=== PATIENT | female | born 1940 | race Caucasian/White ===

== ENCOUNTER 2024-09-04 12:56 | Outpatient (OUT) | payer MEDICARE, BC, SELFPAY ==
--- NOTE | 2024-09-04 07:26 | P.DS_ITS ---
Discharge Plan Discharge Disposition: Home, Self-Care Outpatient Diagnostics: VC Endovenous Ablation 1VeinLT (Routine) Timeframe: 2 Weeks Facility: [facility] - Location: [facility] Center Ordered By: Murphy Padilla Follow Up Appointments: 09/18/24 Plan of Treatment: EVLT of left leg GSV. Print Language: Lao Discharge Date/Time: 09/04/24 16:12
--- NOTE | 2024-09-04 07:26 | V.VEINS.HP ---
Vital Signs 09/04/24 13:34 Height 5 ft 7 in Weight 68.946 kg BMI 23.8 BP 140/68 BP Location Left Brachial BP Position Supine BP Cuff Size Adult BP Source Manual Cuff Respiration 18 Pulse 72 Pulse Source Monitor Pulse Oximetry (%) 98 Oxygen Delivery Method Room Air Comment The patient's blood pressure is elevated. Varicose Veins Patient in this day with c/o left upper leg achiness for one month. Murphy Packer MD personally performed the services described in this documentation, as scribed by Louie Us RN in my presence and it is both accurate and complete. Louie Packer RN, am scribing for, and in the presence of, Dr. Murphy Padilla and in the presence of the patient. thigh: left aching and dull 3 1 month Worsened in recent months: Yes standing analgesics Reports muscle spasms of leg and limb pain History of lower extremity trauma: No Superficial thrombophlebitis: No Family history of varicose veins: yes Has patient had previous lower extremity venous surgery: No Patient has previously received the following treatment(s) for lower extremity varicose veins: Reports none Does patient have a history of : yes Does patient intend to have future pregnancies: no Has patient had lower extremity venous scan with relux testing: No Support hose used: Yes Problems walking or doing physical activity: Yes How does it affect you: often has to set and elevate legs/feet due to pain Do you walk much: Yes Do you stand much: Yes Review of Systems ROS Narrative Murphy Packer MD personally performed the services described in this documentation, as scribed by Louie Us RN in my presence and it is both accurate and complete. Louie Packer RN, am scribing for, and in the presence of, Dr. Murphy Padilla and in the presence of the patient. Status of ROS 10 or more systems reviewed and unremarkable except as noted in history and below [facility] Medical History (Updated 09/04/24 @ 13:45 by Louie Us) Cataract ?H26.9 - Unspecified cataract (ICD-10) Pain due to varicose veins of both lower extremities ?I83.813 - Varicose veins of bilateral lower extremities with pain (ICD-10) Surgical History (Updated 09/04/24 @ 13:45 by Louie Us) H/O mastectomy ?Z90.10 - Acquired absence of unspecified breast and nipple (ICD-10) Family History (Updated 09/04/24 @ 13:48 by Louie Us) Other Pain due to varicose veins of both lower extremities Rheumatic aortic disease Social History (Updated 09/04/24 @ 13:49 by Louie Us) Within the past year, how often did you have a drink containing alcohol: monthly or less Smoking status: Never smoker Non-prescribed substance use: denies use Meds Home Medications and Allergies Home Medications ?Medication ?Instructions ?Recorded ?Confirmed ?Type multivitamin (Daily Multi-Vitamin 1 tab PO DAILY 09/04/24 09/04/24 History tablet) Allergies Allergy/AdvReac Type Severity Reaction Status Date / Time No Known Drug Allergies Allergy Verified 09/04/24 13:47 Exam Narrative Exam Narrative: Murphy Packer MD personally performed the services described in this documentation, as scribed by Louie Us RN in my presence and it is both accurate and complete. Louie Packer RN, am scribing for, and in the presence of, Dr. Murphy Padilla and in the presence of the patient. Results Additional Findings Additional findings: bilateral leg reflux u/s reveals abnormally dilated and compensated bilateral GSV's along with bilateral leg branch saphenous truncal tributary varicosities. Murphy Packer MD personally performed the services described in this documentation, as scribed by Louie Us RN in my presence and it is both accurate and complete. Louie Packer RN, am scribing for, and in the presence of, Dr. Murphy Padilla and in the presence of the patient. Assessment and Plan Assessment and Plan Plan Patient to continue to use bilateral leg compression stockings, elevate, and exercise. Patien to return for EVLT of left GSV followed by microofam chemical ablation left leg. If patient remains symptomatic, patient to return for treatment of right leg, followed by sclerotherapy bilateral leg pre-hemorrhagic reticular veins. Muprhy Packer MD personally performed the services described in this documentation, as scribed by Louie Us RN in my presence and it is both accurate and complete. Louie Packer RN, am scribing for, and in the presence of, Dr. Murphy Padilla and in the presence of the patient.
--- NOTE | 2024-09-04 13:12 | VEIN_ITS ---
Patient Name: LUDMILA LAMBERT MR#: [id number] : 1940 Exam Date: 09/04/2024 Ordering Doctor: DR CLAUDIA WOOD M.D. RADIOLOGY REPORT PROCEDURE: VC FACILITY EST [facility] - OFFICE VISIT INITIAL COMPARISON: VC EXT VENOUS REFLUX CLARISSA LMTD, 09/04/2024. PROGRESS NOTES: [age] year old female who presents with a 3 month history of dilated bulging blood vessel within lateral left thigh causing pain; leg pain and spasm. The patient's left leg symptoms are worse than the right. There has been a progression of symptoms over past month. Pain/tenderness is rather consistent throughout the day. The patient describes an improvement with analgesics. The patient denies any signs and symptoms to suggest arterial ischemia. The patient describes a family history of varicose veins and rheumatic aortic disease. The patient has drinking and smoking history of occasional alcohol consumption; no tobacco use. Patient has a past medical history significant for pain due to varicose veins; prior mastectomy. The patient denies a history of deep venous thrombus or pulmonary embolus. See separate history and physical for medication list. No prior treatment for varicose or spider veins. Current use of compression stockings. After review of nurse notes, history and physical exam I discussed at length the pathophysiology of venous hypertension and possible treatments, therapies and strategies available. We discussed at length the importance of elevating the lower extremities above the level of the heart, increased physical activity and compression stocking use. Ultrasound venous reflux study performed today was discussed at length with the patient. The report demonstrates abnormally dilated and incompetent great saphenous vein bilaterally with associated dilated incompetent branch saphenous varicosities.. PHYSICAL EXAM: The right leg demonstrates several varicosities, extensive spider veins, no ulceration, mild edema, no skin discoloration. The left leg demonstrates several varicosities, extensive spider veins, no ulceration, mild edema, no skin discoloration. Both thighs, legs and feet were symmetrically warm to the touch. Good posterior tibial and dorsalis pedis pulses were present bilaterally. VEIN/VC Facility EST Comprehensive IMPRESSION: 1. Bilateral lower extremity venous insufficiency 2. Bilateral lower extremity varicose veins 3. Mild bilateral lower extremity subcutaneous edema 4. No flow significant arterial disease 5. CEAP: C3, EC, , NM PLAN: 1. Continued use of compression stockings 2. Elevated legs and increased physical activity symptomatic relief 3. Endovenous laser ablation of right great saphenous vein; microfoam chemical ablation of right leg incompetent branch saphenous varicosities; right leg sclerotherapy. 4. If patient appreciate benefits of treating the right leg then she may be interested in treating the left great saphenous vein, branch saphenous varicosities, and numerous spider veins of the left leg. Nurse notes, history and physical were reviewed and confirmed, see attached forms. The nurse was present throughout the physical exam and consultation Dictated by: Murphy Padilla M.D. on 09/05/2024 at 09:16 Approved by: Murphy Padilla M.D. on 09/05/2024 at 09:25
--- NOTE | 2024-09-04 13:12 | VEIN_ITS ---
Patient Name: LUDMILA LAMBERT MR#: [id number] : 1940 Exam Date: 09/04/2024 Ordering Doctor: DR CLAUDIA WOOD M.D. RADIOLOGY REPORT PROCEDURE: VC EXT VENOUS REFLUX CLARISSA LMTD COMPARISON: None. INDICATIONS: I83.813 Bilateral painful varicose veins TECHNIQUE: Duplex imaging of the lower extremity to assess the deep and superficial venous system for the presence of deep or superficial venous incompetence and to document the location and severity of disease. The study includes evaluation of the great saphenous vein (GSV), anterior accessory saphenous vein (AASV) and small saphenous vein (SSV). Patient scanned in reverse Trendelenburg and standing. FINDINGS: RIGHT LOWER EXTREMITY: Saphenofemoral Junction Reflux: Yes 8.3mm 2.8 sec GSV: Diam (mm) Reflux/ Time (sec) Proximal Thigh 7.0 Yes 1.8 Mid Thigh 6.8 Yes 2.3 Distal Thigh 1.5 No Prox Calf 0.7 No Mid Calf N/A Saphenopopliteal Junction Reflux: 3.3mm No SSV: Proximal Calf 1.8 No Mid Calf 2.3 No AASV: Not present Proximal Thigh Mid Thigh Distal Thigh Thrombi: No acute or chronic thrombus visualized Compressibility: Normal Flow: Normal Preforator: Dist/med calf 3.7mm with 0s reflux. Prox/med calf 4.6mm with 0.6s reflux with large deep varicosities visualized. Tech Note: Incompetent GSV. Patent varicose vein dist/med calf 3.6mm with 1.0s reflux. Patent varicose vein prox/med calf 9.6mm with 3.1s reflux. Patent varicose vein mid/med thigh 5.7mm with 1.4s reflux. LEFT LOWER EXTREMITY: Saphenofemoral Junction Reflux: Yes 10.3 mm 2.3 sec GSV: Diam (mm) Reflux/Time (sec) Proximal Thigh 8.7 Yes 0.7 Mid Thigh 4.9 Yes 1.7 Distal Thigh 3.9 Yes 1.6 Prox Calf 3.3 No Mid Calf 1.7 No Saphenopopliteal Junction Relux: 3.3 mm No SSV: Proximal Calf 3.3 Yes 1.8 Mid Calf 2.6 No AASV: Not present Proximal Thigh Mid Thigh Distal Thigh Thrombi: No acute or chronic thrombus visualized Compressibility: Normal Flow: Normal Pool Attendant: Dist/med calf 3.6mm with 0s reflux. Prox/med calf 4.8mm with 0s reflux. Tech Note: Incompetent GSV. Patent varicose vein mid/lat thigh 3.1mm with 0s reflux. Patent varicose vein mid/med calf 3.7mm with 2.1s reflux. Patent varicose vein mid/med thigh 2.6mm with 1.2s reflux. CONCLUSION: 1. Abnormally dilated and incompetent great saphenous vein bilaterally with associated incompetent branch saphenous varicosities. Dictated by: Murphy Padilla M.D. on 09/04/2024 at 14:35 Approved by: Murphy Padilla M.D. on 09/04/2024 at 15:13
[2024-09-04 13:34] VITALS: BP 140/68; PULSE 72; O2SAT 98; BMI 23.8
== END 2024-09-04 16:12 | disposition home or self-care (01) ==
PROVIDERS: PCP Radiology Diagnostic Radiology; Visit Provider Radiology Diagnostic Radiology
DX: I83.813 Varicose veins of bilateral lower extremities with pain (principal)
CPT/HCPCS: 93970; G0463

== ENCOUNTER 2024-09-16 12:43 | Outpatient (OUT) | payer MEDICARE, BC, SELFPAY ==
--- NOTE | 2024-09-12 07:50 | V.VEINS.HP ---
Varicose Veins Patient in this day for EVLT of left GSV Horacio Packer MD personally performed the services described in this documentation, as scribed by Louie Us RN in my presence and it is both accurate and complete. ILouie RN, am scribing for, and in the presence of, Dr. Horacio Handley and in the presence of the patient. thigh: left aching and dull 3 1 month Worsened in recent months: Yes standing analgesics Reports muscle spasms of leg and limb pain History of lower extremity trauma: No Superficial thrombophlebitis: No Family history of varicose veins: yes Has patient had previous lower extremity venous surgery: No Patient has previously received the following treatment(s) for lower extremity varicose veins: Reports none Does patient have a history of : yes Does patient intend to have future pregnancies: no Has patient had lower extremity venous scan with relux testing: No Support hose used: Yes Problems walking or doing physical activity: Yes How does it affect you: often has to set and elevate legs/feet due to pain Do you walk much: Yes Do you stand much: Yes Review of Systems ROS Narrative Horacio Packer MD personally performed the services described in this documentation, as scribed by Louie Us RN in my presence and it is both accurate and complete. ILouie RN, am scribing for, and in the presence of, Dr. Horacio Handley and in the presence of the patient. Status of ROS 10 or more systems reviewed and unremarkable except as noted in history and below PFSH PFSH Medical History (Updated 09/04/24 @ 13:45 by Louie Us) Cataract ?H26.9 - Unspecified cataract (ICD-10) Pain due to varicose veins of both lower extremities ?I83.813 - Varicose veins of bilateral lower extremities with pain (ICD-10) Surgical History (Updated 09/16/24 @ 13:24 by Louie Us) Status post laser ablation of incompetent vein ?Z98.890 - Other specified postprocedural states (ICD-10) H/O mastectomy ?Z90.10 - Acquired absence of unspecified breast and nipple (ICD-10) Family History (Updated 09/04/24 @ 13:48 by Louie Us) Other Pain due to varicose veins of both lower extremities Rheumatic aortic disease Social History (Updated 09/04/24 @ 13:49 by Louie Us) Within the past year, how often did you have a drink containing alcohol: monthly or less Smoking status: Never smoker Non-prescribed substance use: denies use Meds Home Medications and Allergies Home Medications ?Medication ?Instructions ?Recorded ?Confirmed ?Type multivitamin (Daily Multi-Vitamin 1 tab PO DAILY 09/04/24 09/04/24 History tablet) Allergies Allergy/AdvReac Type Severity Reaction Status Date / Time No Known Drug Allergies Allergy Verified 09/04/24 13:47 Exam Narrative Exam Narrative: Horacio Packer MD personally performed the services described in this documentation, as scribed by Louie Us RN in my presence and it is both accurate and complete. Louie Packer RN, am scribing for, and in the presence of, Dr. Horacio Handley and in the presence of the patient. Assessment and Plan Assessment and Plan Plan f/u evaluation with physician along with left leg limited u/s Horacio Packer MD personally performed the services described in this documentation, as scribed by Louie Us RN in my presence and it is both accurate and complete. Louie Packer RN, am scribing for, and in the presence of, Dr. Horacio Handley and in the presence of the patient. Procedures Procedure Instructions Procedures Plan of care: Risks and benefits of the procedure were discussed at length and informed written consent was obtained.? Time-out completed for verification of correct patient, procedure and site.? Staff present during time-out: Louie Us RN,? Horacio Handley MD, [facility],[place]. Time Out Time_1327 Patient prepped and procedure performed in usual sterile fashion. Risk of injury related to use of Diode laser and/or laser devices? __CR___ ? Serial number of laser used :? [id number] Control panel self test performed, electrical cords in good condition, floor is dry, basin of water available, fire extinguisher in close proximity_CR__ Polycarbonate goggles available and Laser warning signs outside of doors___CR__ Eye protection provided to patient and staff in room_CR___ Use of laser retardant drapes and dull blackened instruments as directed__CR___ Use of nonflammable prep solutions and use of saline soaked sponges to protect tissues as indicated _CR___ Length _36 cm Laser operated by __Dr. Handley Physician verbal confirmation laser locked in place__CR__ Laser start time (date and time) _09/16/2024@_1338 Laser stop time(date and time) _09/16/2024@_1342 Hernadez _8.0___ Average laser use _1764 Joules Average laser use_220 seconds Pulse continuous ___CR_? Pulse intermittent ___ Amount of Tumescent used _225cc Evaluated patient for signs and symptoms of electrical injury __CR___ ? Skin clear at insertion site __CR___ Patient tolerated procedure well.? Left leg Coban dressing applied to access site.? Applied Left thigh high leg compression stocking. Will return on 09/23/2024 for Left leg limited venous ultrasound and exam. IHoracio MD personally performed the services described in this documentation, as scribed by Louie Us RN in my presence and it is both accurate and complete. I, Louie Us RN, am scribing for, and in the presence of, Dr. Horacio Handley and in the presence of the patient.
--- NOTE | 2024-09-12 07:53 | P.DS_ITS ---
Discharge Plan Discharge Disposition: Home, Self-Care Outpatient Diagnostics: VC Facility EST LMTD (Routine) Timeframe: 2 Weeks Facility: [facility] - Location: Vein Center Ordered By: Horacio Handley VC EXT Venous LT Limited (Routine) Timeframe: 2 Weeks Facility: [facility] - Location: Vein Center Ordered By: Horacio Handley Follow Up Appointments: 09/23/2024 Plan of Treatment: f/u evaluation with physician along with left leg limited u/s Patient Instructions: Endovenous Ablation (DC) Print Language: Khmer Discharge Date/Time: 09/16/24 13:35
--- NOTE | 2024-09-16 12:44 | VEIN_ITS ---
[address] [address] Patient Name: LUDMILA LAMBERT MRN: [id number] date: 1940 Sex: F Assigned Patient Location: Current Patient Location: Accession/Order Number: [id number] Exam Date: 09/16/2024 12:50 Report Date: 09/16/2024 13:59 At the request of: MARK ANTHONY VALLES Procedure: VC Endovenous Ablation 1VeinLT EXAMINATION: VC Endovenous Ablation 1Vein, left great saphenous vein HISTORY: I83.813 - Varicose veins of bilateral lower extremities w... COMPARISON: No relevant comparison available. TECHNIQUE: The risks and benefits of the procedure had been previously discussed, and were rediscussed at length. Informed written consent was obtained. Kirsten Bryson and Louie Us assisted. Time out procedure was performed. The left lower extremity was prepared and draped in the usual sterile fashion to allow knee flexion in the sterile field. Duplex ultrasound probe was draped in a sterile cover, sterile transmission gel was used. Venous mapping was performed with the areas of dilation and large tributaries marked. The total length was 36 cm from the entry mid calf to 3 cm below the saphenofemoral junction. The diameter of the greater saphenous vein ranged from 5-9 mm. A 30 gauge needle and 1% buffered lidocaine was used to anesthetize the entry site. A 4 mm incision was made with a scalpel and the saphenous vein was entered percutaneously under direct ultrasound guidance with a micropuncture set, a single stick was successful in gaining access. A micro-guide wire was inserted and the needle removed. A micro-set including a dilator was inserted over the microwire and the needle and dilator were removed. A 0.018 guide wire was inserted through the micro-set and threaded through the saphenous vein to the saphenofemoral junction. The dilator was removed and an introducer sheath was inserted over the wire until the end of the sheath entered the saphenofemoral junction. The dilator and wire were removed and the 600 micron fiber was introduced and placed and positioned so that it extended beyond the sheath and was 3 cm peripheral to the saphenofemoral femoral junction. Final position of the fiber was determined by ultrasound guidance and duplex imaging. Tumescent anesthetic was delivered by ultrasound guidance. 225 cc of fluid was delivered along the entire course of the saphenous vein. The solution consisted of 1000 cc of normal saline with 40 mL of 1% lidocaine and 20 mL of sodium bicarbonate. A final positioning check was made. The energy source was turned on by means of the foot pedal and the fiber and sheath were withdrawn. The total number of Joules delivered was 1764. The laser was active for 220 seconds under continuous pulse, average laser use of 8 J. Laser start time 1338 09/16/2024 . Laser stop time 1342 09/16/2024 . A duplex ultrasound revealed compressibility and flow at the saphenofemoral junction immediately after the procedure. Hemostasis at the access site was achieved. The skin incision of the saphenous vein was closed with a 4 x 4. A compression stocking was applied. Postop instructions were given. A follow up appointment was recommended and scheduled. The patient tolerated the procedure well and was discharged in good condition . VEIN/VC Endovenous Ablation 1VeinLT IMPRESSION: Technically successful endovenous laser ablation of the left great saphenous vein Electronically authenticated by: CLAUDIA WOOD Date: 09/16/2024 13:59
[2024-09-16] MEDS: LIDOCAINE HCL 1% 100 MG/10 ML MDV INJ (12:46)
[2024-09-16] MEDS: 0.9 % SODIUM CHLORIDE 500 ML, LIDOCAINE HCL 20 ML, SODIUM BICARBONATE 10 MEQ INJ (12:47)
== END 2024-09-16 13:35 | disposition home or self-care (01) ==
LOC: VC 12:44
PROVIDERS: PCP Radiology Diagnostic Radiology; Visit Provider Radiology Diagnostic Radiology
DX: I83.813 Varicose veins of bilateral lower extremities with pain (principal)
CPT/HCPCS: 36478

== ENCOUNTER 2024-09-24 07:58 | Outpatient (OUT) | payer MEDICARE, BC, SELFPAY ==
--- NOTE | 2024-09-24 08:13 | VEIN_ITS ---
Patient Name: LUDMILA LAMBERT MR#: [id number] : 1940 Exam Date: 09/24/2024 Ordering Doctor: DR HORACIO HANDLEY M.D. RADIOLOGY REPORT PROCEDURE: VC EXT VENOUS LT LIMITED COMPARISON: None. INDICATIONS: I80.02 - Phlebitis and thrombophlebitis of superficial veins left leg TECHNIQUE: Lower extremity romero scale and Duplex Doppler evaluation of the deep venous system from the inguinal ligament through the calf veins. FINDINGS: REGION: Left lower extremity. THROMBI: Negative for DVT. Heat induced thrombus in left GSV 0.8 cm from SFJ and extends to proximal lower leg. COMPRESSIBILITY: Non-compressible segments corresponding to thrombus FLOW: Areas of no flow corresponding to thrombus CONCLUSION: Post ablation occlusion of the treated left great saphenous vein with heat induced thrombus 0.8 cm from the saphenofemoral junction Dictated by: Horacio Handley MD on 09/24/2024 at 08:37 Approved by: Horacio Handley MD on 09/24/2024 at 08:38
--- NOTE | 2024-09-24 08:13 | VEIN_ITS ---
Patient Name: LUDMILA LAMBERT MR#: [id number] : 1940 Exam Date: 09/24/2024 Ordering Doctor: DR HORACIO HANDLEY M.D. RADIOLOGY REPORT PROCEDURE: FACILITY EST LMTD VEIN CENTER - OFFICE VISIT FOLLOW UP COMPARISON: None. PROGRESS NOTES: The patient reports no significant problems following intravenous laser ablation of the left great saphenous vein. The patient has worn her compression stockings. The patient did not require oral analgesics. Physical exam demonstrates the incision to be sealed. No erythema or warmth to suggest cellulitis or thrombophlebitis. The thrombosed left great saphenous vein can be partially palpated period no bruising. Review of the ultrasound performed the same day demonstrates occlusive thrombus extending throughout the treated left great saphenous vein with heat induced thrombus 0.8 cm from the saphenofemoral junction. The epigastric vein remains patent. The patient expressed a desire to proceed with treatment of left leg varicose veins with micro foam chemical ablation. VEIN/[facility] IMPRESSION: 1. Successful ablation of the left great saphenous vein 2. Persistent incompetent left varicose veins. PLAN: Micro foam chemical ablation left leg incompetent varicose veins Nurse notes, history and physical were reviewed and confirmed, see attached forms. The nurse was present throughout the physical exam and consultation Dictated by: Horacio Handley MD on 09/24/2024 at 08:49 Approved by: Horacio Handley MD on 09/24/2024 at 08:51
[2024-09-24 08:22] VITALS: BMI 23.8
--- NOTE | 2024-09-24 08:22 | VEINCLINIC_ITS ---
Vital Signs 09/24/24 08:22 Height 5 ft 7 in Weight 68.9 kg BMI 23.8 Varicose Veins Patient in today for follow up ultrasound of left lower extremity following EVLT of left GSV completed on 09/16/24. Horacio Packer MD personally performed the services described in this documentation, as scribed by Anabel Lu RDMS in my presence and it is both accurate and complete. IAnabel RDMS, am scribing for, and in the presence of, Dr. Horacio Handley and in the presence of the patient. thigh: left aching and dull 3 1 month Worsened in recent months: Yes standing analgesics Reports muscle spasms of leg and limb pain History of lower extremity trauma: No Superficial thrombophlebitis: No Family history of varicose veins: yes Has patient had previous lower extremity venous surgery: No Patient has previously received the following treatment(s) for lower extremity varicose veins: Reports none Does patient have a history of : yes Does patient intend to have future pregnancies: no Has patient had lower extremity venous scan with relux testing: No Support hose used: Yes Problems walking or doing physical activity: Yes How does it affect you: often has to set and elevate legs/feet due to pain Do you walk much: Yes Do you stand much: Yes Review of Systems ROS Narrative Horacio Packer MD personally performed the services described in this documentation, as scribed by Anabel Lu RDMS in my presence and it is both accurate and complete. Anabel Packer RDMS, am scribing for, and in the presence of, Dr. Horacio Handley and in the presence of the patient. Status of ROS 10 or more systems reviewed and unremark able except as noted in history and below [facility] Medical History (Updated 09/24/24 @ 08:23 by Anabel Lu) Phlebitis and thrombophlebitis of superficial vessels of left lower extremity ?I80.02 - Phlebitis and thrombophlebitis of superficial vessels of left lower extremity (ICD-10) Cataract ?H26.9 - Unspecified cataract (ICD-10) Pain due to varicose veins of both lower extremities ?I83.813 - Varicose veins of bilateral lower extremities with pain (ICD-10) Surgical History (Updated 09/16/24 @ 13:24 by Louie Us) Status post laser ablation of incompetent vein ?Z98.890 - Other specified postprocedural states (ICD-10) H/O mastectomy ?Z90.10 - Acquired absence of unspecified breast and nipple (ICD-10) Family History (Updated 09/04/24 @ 13:48 by Louie Us) Other Pain due to varicose veins of both lower extremities Rheumatic aortic disease Social History (Updated 09/04/24 @ 13:49 by Louie Us) Within the past year, how often did you have a drink containing alcohol: monthly or less Smoking status: Never smoker Non-prescribed substance use: denies use Meds Home Medications and Allergies Home Medications ?Medication ?Instructions ?Recorded ?Confirmed ?Type multivitamin (Daily Multi-Vitamin 1 tab PO DAILY 09/04/24 09/04/24 History tablet) Allergies Allergy/AdvReac Type Severity Reaction Status Date / Time No Known Drug Allergies Allergy Verified 09/04/24 13:47 Exam Narrative Exam Narrative: Horacio Packer MD personally performed the services described in this documentation, as scribed by Anabel Lu RDMS in my presence and it is both accurate and complete. Anabel Packer RDMS, am scribing for, and in the presence of, Dr. Horacio Handley and in the presence of the patient. 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 Horacio Packer MD personally performed the services described in this documentation, as scribed by Anabel Lu RDMS in my presence and it is both accurate and complete. Anabel Packer RDMS, am scribing for, and in the presence of, Dr. Horacio Handley and in the presence of the patient. Assessment and Plan Assessment and Plan (1) Phlebitis and thrombophlebitis of superficial vessels of left lower extremity: Plan Plan is for patient to return for Varithena/microfoam of left leg on 09/30/24. Horacio Packer MD personally performed the services described in this documentation, as scribed by Anabel Lu RDMS in my presence and it is both accurate and complete. I, Anabel Bollenbacher RDMS, am scribing for, and in the presence of, Dr. Horacio Handley and in the presence of the patient.
--- OUTSIDE RECORDS SUMMARY | 2024-09-24 08:22 | XMS_ITS | CCD ---
Author Organization [place] [facility] Care Team Providers Care Remote Sensing Technologist Name Role Phone Earnest Chicas MD Primary Care Provider [phone] EARNEST CHICAS Primary Care Unavailable VERENA MARIA Referring Unavailable Earnest Chicas MD Primary Care Provider Medications Current Medications Medication Drug Class(es) Dates Sig (Normalized) Sig (Original) benoxinate hydrochloride 4 mg/ml / fluorescein sodium 2.5 mg/ml ophthalmic solution (1 source) Diagnostic Dye Start: 04-24-2022 End: 04-25-2022 fluorescein-benoxi mikayla 0.25-0.4 % 1 Drop (FLURESS) calcium carb-mag ox-zinc gluc 333-133-5 mg tab (6 sources) calcium carb-mag ox-zinc gluc 333-133-5 mg tab Take by mouth once daily. Active calcium carb-mag ox-zinc gluc 333-133-5 mg tab Take by mouth once daily. 0 Active Comment on above: Take by mouth once d aily. magnesium gluconate 550 mg oral tablet (6 sources) take 1 tablet by mouth twice daily Magnesium 30 mg tablet Take 30 mg by mouth twice daily. Active Comment on above: Take 30 mg by mouth twice daily. multivitamin tablet (6 sources) take 1 tablet by mouth once daily multivitamin tablet Take 1 tablet by mouth once daily. Active take 1 tablet by mouth once omkar y multivitamin tablet Take 1 tablet by mouth once daily. 0 Active Comment on above: Take 1 tablet by fan th once daily. phenylephrine hydrochloride 25 mg/ml ophthalmic solution (1 source) alpha-1 Adrenergic Agonist Start: 04-24-2022 End: 04-25-2022 PHENYLephrine 2.5 % 1 Drop (AK-DILATE, SARA-SYNEPHRINE) proparacaine hydrochloride 5 mg/ml ophthalmic solution (1 source) Local Anesthetic Start: 04-24-2022 End: 04-25-2022 proparacaine 0.5 % 1 Drop (ALCAINE) sodium chloride 0.603076 meq/mg ophthalmic ointment (1 source) Start: 09-23-2024 sodium chloride (DASH 128) 5 % ophthalmic ointment Use 1 application in the left eye daily at bedtime. 3.5 g 2 09/23/2024 Active tropicamide 10 mg/ml ophthalmic solution (1 source) Anticholinergic Start: 04-24-2022 End: 04-25-2022 tropicamide 1 % 1 Drop (MYDRIACYL) Zinc (6 sources) Zinc 50 mg tab T jia by mouth. Active Zinc 50 mg tab T jia by mouth. 0 Active Comment on above: Take by mouth. Completed/Discontinued Medications Medication Drug Class(es) Dates Sig (Normalized) Sig (Original) ketorolac tromethamine 5 mg/ml ophthalmic solution (2 sources) Nonsteroidal Anti-inflammatory Drug, Cyclooxygenase Inhibitor Start: 02-16-2021 End: 04-24-2022 keTORolac (ACULAR) 0.5 % ophthalmic solution USE DIRECTED BY PHYSICIAN, IN OPERATIVE EYE, BEGINNING ONE DAY AFTER SURGERY 1 Bottle 0 02/16/2021 04/24/2022 Discontinued (Course of therapy completed) Comment on above: USE DIRECTED BY Serge OTTO, IN OPERATIVE EYE, BEGINNING ONE DAY AFTER SURGERY prednisoLONE acetate 10 mg/ml ophthalmic suspension (1 source) Corticosteroid Start: 02-16-2021 End: 09-16-2021 prednisoLONE acetate (PRED FORTE, ECONOPRED PLUS) 1 % ophthalmic suspension USE DIRECTED BY PHYSICIAN, IN OPERATIVE EYE, BEGINNING ONE DAY AFTER SURGERY 1 Bottle 0 02/16/2021 09/16/2021 Discontinued (Course of therapy completed) Comment on above: USE DIRECTED BY Serge OTTO, IN OPERATIVE EYE, BEGINNING ONE DAY AFTER SURGERY Problems Active Problems Problem Classification Problem Date Documented Da te Episodic/Chronic Blindness and vision defects (1 source) Presbyopia; Translations: [Presbyopia] Episodic Cataract (1 source) Bilateral pseudophakia; Translations: [Presence of intraocular lens] Chronic Other eye disorders (1 source) Chorioretinal scar of left eye; Translations: [Unspecified chorioretinal scars, left eye] Chronic Other eye disorders (1 source) Tear film insufficiency of bilateral eyes; Translations: [Dry eye syndrome of bilateral lacrimal glands] Episodic Other eye disorders (1 source) Epithelial basement membrane dystrophy; 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] 09-23-2024 Episodic Past or Other Problems Problem Classification Problem Date Documented Date Episodic/Chronic Other circulatory disease (6 sources) Elevated blood-pressure reading without diagnosis of hypertension; Translations: [Elevated blood-pressure reading, without diagnosis of hypertension] Onset: 07-14-2016 07-14-2016 Episodic Residual codes; unclassified (2 sources) H/O: artificial organ/tissue; Translations: [Other specified postprocedural states] Onset: 05-05-2016 05-05-2016 Episodic Residual codes; unclassified (6 sources) Acquired absence of breast; 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 Author Type: Physician Type: Letter Filed: 11/12/2023 11:34 PM Note Text: November 09, 2023 PID: [id number] Charley Link [address] [place] [address] Dear Ms. Link, We are pleased to inform you that the results of your recent breast imaging exam on 11/02/2023 are normal. Your mammogram demonstrates that you have dense breast tissue, which could hide abnormalities. Dense breast tissue, in and of itself, is a relatively common condition. Therefore, this information is not provided to cause undue concern; rather, it is to raise your awareness and promote discussion with your health care provider regarding the presence of dense breast tissue in addition to other risk factors. Early detection of cancer is very important. We also understand recommendations regarding breast cancer screening are controversial. Please discuss with your primary care provider which strategy is best for you and whether a mammogram is right for you. Your imaging studies and report will be kept on file at [facility] as part of your permanent medical record and are available for your continuing care. Thank you for allowing us to help in meeting your health care needs. Sincerely, Dr. Reyes Interpreting Radiologist [facility] (Normal over 40) Normal [facility] SCREENINGon 11-02-2023 [facility] SCREENING * * *Final Report* * * DATE OF EXAM: Nov 02 2023 2:59PM [id number] - [facility] SCREENING / PROCEDURE REASON: SCREENING * * * * Physician Interpretation * * * * RESULT: #[id number] - [facility] SCREENING UNILATERAL LEFT DIGITAL SCREENING MAMMOGRAM WITH CAD: 11/02/2023 HISTORY: Screening / Screening Mammogram-Patient reports NO symptoms. RESULT: TECHNIQUE: The study was acquired using full field digital technology and interpreted from soft copy. Current study was also evaluated with a Computer Aided Detection (CAD). Comparison is made to exams dated: 08/01/2022 mammogram, 02/22/2021 mammogram, 12/29/2019 mammogram, and 11/18/2018 mammogram - [facility]. The left breast is heterogeneously dense, which may obscure small masses. No significant masses, calcifications, or other findings are seen in the breast. There has been no significant interval change. IMPRESSION: NEGATIVE There is no mammographic evidence of malignancy. A 1 year screening mammogram is recommended. Rosi Reyes M.D., ch/soila:11/08/2023 16:10:08 Service Writer(s): RT Tom(Ace)(M), [facility] letter sent: Normal over 40 Mammogram BI-RADS: 1 Negative Multiple national specialty organizations have released breast cancer screening guidelines for women at average risk for developing breast cancer - guidelines that are based on both evidence and opinion, yet differ on when to start and how often to screen for breast cancer. With representation from Breast Imaging, Internal Medicine, Women's Health, Family Medicine, and Medical/Surgical Oncology, the [facility] has carefully reviewed the data and reached the following consensus: 1) All women should engage in shared decision-making with their providers to decide when to start and how often to screen; 2) All women should have the opportunity to start screening mammography at age 40; 3) For women ages 45-55, we recommend annual screening mammograms; 4) For women ages 55 and over, we support both the transition from an annual to a biennial interval if this aligns more with patient's values and preferences, or continuation with annual screening; 5) All women should discuss with their providers when to stop screening mammograms. Ceramic Engineer: Soila Transcribe Date/Time: Nov 02 2023 2:29P Dictated by: ROSI REYES MD This examination was interpreted and the report reviewed and electronically signed by: ROSI REYES MD on Nov 08 2023 4:10PM EST [id number] Normal [facility] SCREENINGon 08-01-2022 [facility] Q - THINPREP(R) TISon 2021 CLINICAL INFORMATION: None given Normal [facility] Actuarial Science Teacher Comment on above: Order Comment: [facility] at: [facility], [address] [place] [address], [address] [place] [address], [phone], Director Summer Sessions: Surjit Zarate MD [facility] Collection Date/Time: [facility] Results Received Date/Time: [facility] Reported Date/Time: Performed By: #### [id number] #### [facility] Default [address] [place] [address] COMMENT SEE NOTE Normal [facility] Actuarial Science Teacher Comment on above: Order Comment: [facility]: [facility], [address] [place] [address], [address] [place] [address], [phone], Director Summer Sessions: Surjit Zarate MD [facility] Date/Time: [facility] Results Received Date/Time: [facility] Reported Date/Time: Result Comment: EXPL ANATORY NOTE: The Pap is a screening test for cervical cancer. It is not a diagnostic test and is subject to false negative and false positive results. It is most reliable when a satisfactory sample, regularly obtained, is submitted with relevant clinical findings and history, and when the Pap result is evaluated along with historic and current clinical information. Performed By: #### [id number] #### [facility] Default [address] [place] [address] COMMENT: SEE NOTE Normal [facility] Specialist Comment on above: Order Comment: [facility] performed at: [place], [facility], [address] [place] [address], [address] [place] [address], [address] [place] [address], Director Summer Sessions: Surjit Zarate MD [facility] Collection Date/Time: [facility] Results Received Date/Time: [facility] Reported Date/Time: Result Comment: This Pap test has been evaluated with computer assisted technology. Parabasal cells in smears that lack maturation due to atrophy or other hormonal reasons cannot be differentiated from transformation zone cells. Accordingly, presence or absence of endocervical or transformation zone components cannot be reported in this patient. Performed By: #### [id number] #### [facility] Default [address] [place] [address] WASTE AND BATTING WASTE CHOPPER: SEE NOTE Normal [facility] Comment on above: Order Comment: [facility] performed at: [place], [facility], [address] [place] [address], [address] [place] [address], [address] [place] [address], Director Summer Sessions: Surjit Zarate MD [facility] Date/Time: [facility] Results Received Date/Time: [facility] Reported Date/Time: Result Comment: LXT, CT(ASCP) CT screening location: [facility] [address]. Performed By: #### [id number] #### [facility] Default [address] [place] [address] INTERPRETATION/RES ULT: SEE NOTE Normal [facility] Specialist Comment on above: Order Comment: [facility] performed at: [facility], [facility], [address] [place] [address], [address] [place] [address], [address] [place] [address], Director Summer Sessions: Surjit Zarate MD [facility] Date/Time: [facility] Results Received Date/Time: [facility] Reported Date/Time: Result Comment: Nega tive for intraepithelial lesion or malignancy. Atrophic pattern; predominantly parabasal cells Performed By: #### [id number] #### [facility] Default [address] [place] [address] LMP: None given Normal [facility] Specialist Comment on above: Order Comment: [facility] performed at: [place], [facility], [address] [place] [address], [address] [place] [address], [address] [place] [address], Director Summer Sessions: Surjit Zarate MD [facility] Date/Time: [facility] Results Received Date/Time: [facility] Reported Date/Time: Performed By: #### [id number] #### [facility] Default [address] [place] [address] PREV. BX: None given Normal [facility] Specialist Comment on above: Order Comment: [facility] performed at: [facility], [address] [place] [address], [address] [place] [address], [address] [place] [address], Director Summer Sessions: Surjit Zaraet MD [facility] Date/Time: [facility] Results Received Date/Time: [facility] Reported Date/Time: Performed By: #### [id number] #### [facility] Default [address] [place] [address] PREV. PAP: None given Normal [facility] Specialist Comment on above: Order Comment: [facility] performed at: [facility], [address] [place] [address], [address] [place] [address], [address] [place] [address], Director Summer Sessions: Surjit Zarate MD [facility] Date/Time: [facility] Results Received Date/Time: [facility] Reported Date/Time: Performed By: #### [id number] #### [facility] Default [address] [place] [address] SOURCE: None given Normal [facility] Specialist Comment on above: Order Comment: [facility] performed at: [facility], [facility], [address] [facility], [address] [place] [address] - [facility], [place], [address], Director Summer Sessions: Surjit Zarate MD [facility] Date/Time: [id number] [facility] Results Received Date/Time: [id number] [facility] Reported Date/Time: [id number] Performed By: #### [id number] #### [facility] Default [address] [place] [address] COVID-19 Lab Corpon 02-29-20 21 SARS-CoV-2 (COVID-19) RNA LILIA+probe Ql (Unsp spec) Not detected Normal Not Detected [facility] Comment on above: Order Comment: Healt hcare Worker?: N Result Comment: This nucleic acid amplification test was developed and its performance characteristics determined by [employer]. Nucleic acid amplification tests include RT- PCR and TMA. This test has not been FDA cleared or approved. This test has been authorized by FDA under an Emergency Use Authorization (EUA). This test is only authorized for the duration of time the declaration that circumstances exist justifying the authorization of the emergency use of in vitro diagnostic tests for detection of SARS-CoV-2 virus and/or diagnosis of COVID-19 infection under section 564(b)(1) of the Act, 21 U.S.C. 360bbb-3(b) (1), unless the authorization is terminated or revoked sooner. When diagnostic testing is negative, the possibility of a false negative result should be considered in the context of a patient's recent exposures and the presence of clinical signs and symptoms consistent with COVID-19. An individual without symptoms of COVID-19 and who is not shedding SARS-CoV-2 virus would expect to have a negative (not detected) result in this assay. PERFORMED BY: [facility] [address] [place] [address] PATHOLOGIST TUB CHUCKER ORAL XIONG M.D. Performed By: #### C ORONAVIRUS #### [facility] , [facility] SCREENINGon 02-22-2021 [facility] COVID-19 Lab [facility] 02-15-20 21 SARS-CoV-2 (COVID-19) RNA LILIA+probe Ql (Unsp spec) Not detected Normal Not Detected [facility] Comment on above: Order Comment: Healt hcare Worker?: N Result Comment: This nucleic acid amplification test was developed and its performance characteristics determined by [facility]. Nucleic acid amplification tests include RT- PCR and TMA. This test has not been FDA cleared or approved. This test has been authorized by FDA under an Emergency Use Authorization (EUA). This test is only authorized for the duration of time the declaration that circumstances exist justifying the authorization of the emergency use of in vitro diagnostic tests for detection of SARS-CoV-2 virus and/or diagnosis of COVID-19 infection under section 564(b)(1) of the Act, 21 U.S.C. 360bbb-3(b) (1), unless the authorization is terminated or revoked sooner. When diagnostic testing is negative, the possibility of a false negative result should be considered in the context of a patient's recent exposures and the presence of clinical signs and symptoms consistent with COVID-19. An individual without symptoms of COVID-19 and who is not shedding SARS-CoV-2 virus would expect to have a negative (not detected) result in this assay. PERFORMED BY: [address] [address] PATHOLOGIST TUB CHUCKER ORAL XIONG M.D. 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) Start: 11-02-2023 End: 11-02-2023 ambulatory EARNEST FAY CHICAS Facility:[facility] Start: 08-01-2022 Documentation procedure Mammog riri Coordinator [facility] Start: 08-01-2022 Letter encounter Mammography Coordinator [facility] Department Start: 08-01-2022 End: 08-01-2022 Subsequent hospital visit by physician [facility] Start: 04-24-2022 End: 04-24-2022 Patient encounter procedure Dia Parsons OD Work Phone: Ophthalmology Comment on above: Pseudophakia of both eyes (Primary Dx); Insufficiency of tear film of both eyes; Chorioretinal scar of left eye; Presbyopia Start: 09-16-2021 End: 09-16-2021 Subsequent hospital visit by physician [facility] Work Phone: Mammography Start: 02-22-2021 End: 02-22-2021 Subsequent hospital visit by physician [facility] Procedures Date Procedure Procedure Detail Performing Clinician Start: 08-01-2022 Screening mammograph y bi 2-view breast inc cad [facility] Provider Start: 02-22-2021 Screening mammograph y bi 2-view breast inc cad Fela Trevino MD Work Phone: Plan of Treatment Date Care Activity Detail Author Start: 07-13-2024 Covid-19 Vaccine ( season) Covid-19 Vaccine ( season) [facility] Start: 07-13-2024 Influenza vaccination Influenza Vacc ine (#1) [facility] Start: 11-12-2023 Advance Directive Discussion Advance Directive Discussion [facility] Start: 07-13-2023 Influenza vaccination INFLUENZA (#1) [facility] Start: 11-12-2022 ADVANCE DIRECTIVE DISCUSSION ADVANCE DIRECTIVE DISCUSSION [facility] Start: 11-12-2022 DEPRESSION ASSESSMENT DEPRESSION ASS ESSMENT [facility] Start: 07-13-2022 Influenza vaccination [facility] Start: 11-12-2021 ADVANCE DIRECTIVE DISCUSSION ADVANCE DIRECTIVE DISCUSSION [facility] Start: 07-14-2019 [facility] Start: 07-14-2019 Diabetes Screening Diabetes Screenin g [facility] Start: 2017 RSV Vaccine (1 - 1-d ose 75+ series) RSV Vaccine (1 - 1-dose 75+ series) [facility] Start: 2007 BONE DENSITY BONE DENSITY [facility] Start: 2007 Pneumococcal Vaccine : 65+ (1 of 1 - PCV) Pneumococcal Vaccine: 65+ (1 of 1 - PCV) [facility] Start: 2007 PNEUMOCOCCAL: 65+ (1 - PCV) PNEUMOCOCCAL: 65+ (1 - PCV) [facility] Start: 2007 Screening for osteoporosis Bone Density Screening [facility] Start: 09-05-1999 Urine microalbumin profile DTaP,Tdap,Td Vaccine (1 - Tdap) [facility] Start: 1992 SHINGRIX VACCINE (1 of 2) SHINGRIX V ACCINE (1 of 2) [facility] Start: 1961 Urine microalbumin profile [facility] Start: 1960 Anxiety Screening Anxiety Screening [facility] Start: 1960 Depression Screening Depression Scre ening [facility] Start: 1954 Adult depression screening assessment DEPRESSION SCREENING [facility] Start: 1947 COVID-19 VACCINE (#1) COVID-19 VACCI NE (#1) [facility] Start: 06-22-1943 COVID-19 VACCINE (#1) COVID-19 VACCI NE (#1) [facility] Payers Date Payer Category Payer Unknown [employer] PPO OOS [id number] 2016-Present [phone] [address] [place] [address] PPO [id number] 2016 Unknown [employer] PPO OOS [id number] 2016-Present [phone] [address] [place] [address] PPO [id number] 2016 Unknown [id number] 2013 Medicare MEDICARE MEDICAR E A AND B [id number] 2013-Present [phone] [place] [address] Medicare [id number] 2013 Medicare MEDICARE MEDICAR E A AND B [id number] 2013-Present [phone] [place] [address] Medicare [id number] 2013 Medicare [id number] Social History Date Type Detail Facility Start: 04-03-2016 End: 01-06-2021 Tobacco smoking status NHIS Never smoked tobacco [facility] Start: 04-03-2016 End: 01-06-2021 Tobacco use and exposure Smokeless tobacco non-user [facility] Start: 04-24-2022 End: 09-23-2024 Alcohol intake Current drinker of alcohol (finding) [facility] Start: 04-24-2022 End: 09-23-2024 Alcohol intake [facility] Start: 1940 Sex Assigned At Not on file [facility] Start: 01-17-2021 End: 03-28-2022 Exposure to SARS-CoV-2 (event) Not sure [facility] Start: 04-24-2022 End: 09-23-2024 Tobacco use panel [facility] National Score (1-10 0), lower number is lower risk Not on file [facility] Medical Equipment Procedure Code Equipment Code Equipment Origin al Text Equipment Identifier Dates Matrix Alloderm Thick Acellular Dermis 16x8cm Tissue Allograft Regenerative - [id number] Start: 05-05-2016 Lens Iol 0d +21 Meng Uv Abs - [id number] Start: 02-16-2021 Comment on above: Description: -0.39 Lens Iol Acrysof Trc3 20.5 - [id number] Start: 03-02-2021 Comment on above: Description: -0.27 Training Program Assistant Cpx4 P6 .2cm Contour Profile Medium Height Siltex 10.7x9.3cm Tissue - [id number] Start: 05-05-2016 Implant 11.7cm P3.5cm Moderate Plus Profile Round Silicone Breast Gel - [id number] Start: 07-18-2016 Comment on above: Description: smooth round moderate plus silicone Instructions 09-23-2024 Patient Instructions Note Date & Type Note Facility 09-23-2024 Instructions Jude Haynes OD - 09/23/2024 1:49 PM EST Dash 128 ointment - Use 1/2 inch to the left eye hs for one week then stop Refresh KEEL PRESS OPERATOR tears every 2 hours for 1 week then four times a day ongoing documented in this encounter [facility] History of Present illness Narrative 09-23-2024 Jude Haynes, OD - 09/23/2024 1:37 PM EST Note Date & Type Note Facility 09-23-2024 History of Presen t illness Narrative (H18.522) 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 The treatment options/risks/benefits have been discussed. Questions answered. I have interviewed and examined Charley Link. I have confirmed and edited as necessary the chief complaint, history of present illness, past medical history, medications, family history, social history, review of systems, and exam findings as obtained by others. I agree with the assessment and plan as stated above,and have discussed them in detail with the patient. Jude Haynes OD September 23, 2024 1:44 PM documented in this encounter [facility] Note 08-01-2022 Letter - Mammography Coordinator - 08/01/2022 1:42 PM EDT Note Date & Type Note Facility 08-01-2022 Miscellaneous Notes Formattin g of this note might be different from the original. August 01, 2022 PID: [id number] Charley Link [address] [place] [address] Dear Ms. Link, We are pleased to inform you that the results of your recent breast imaging exam on 08/01/2022 are normal. Your mammogram demonstrates that you have dense breast tissue, which could hide abnormalities. Dense breast tissue, in and of itself, is a relatively common condition. Therefore, this information is not provided to cause undue concern; rather, it is to raise your awareness and promote discussion with your health care provider regarding the presence of dense breast tissue in addition to other risk factors. Early detection of cancer is very important. We also understand recommendations regarding breast cancer screening are controversial. Please discuss with your primary care provider which strategy is best for you and whether a mammogram is right for you. Your imaging studies and report will be kept on file at [facility] as part of your permanent medical record and are available for your continuing care. Thank you for allowing us to help in meeting your health care needs. Sincerely, Dr. Wellington Interpreting Radiologist [facility] (Normal over 40) documented in this encounter [facility] History of Present illness Narrative 08-01-2022 Meredith Deluca RT(R) - 08/01/2022 1:10 PM EDT Note Date & Type Note Facility 08-01-2022 History of Presen t illness Narrative Radiology Service Progress Note PATIENT NAME: Charley Link DATE OF SERVICE: August 01, 2022 TIME: 1:14 PM PATIENT IDENTITY VERIFICATION COMPLETED USING TWO (2) IDENTIFIERS: Name and Date of confirmed by patient verbally. FALL SCREENING: Has the patient had 2 falls in the last year or 1 fall with injury or currently using an Ambulatory Assistive Device (Walker, Cane, Wheelchair, Crutches, etc.)? No PATIENT GENDER DATA: Female. status: : No status: NO. PATIENT RELEVANT IMPLANT DATA REVIEWED: Yes RADIOLOGY DEPARTMENT: Mammography PERIPHERAL IV DATA: Not applicable SIGNED BY: RT Tom(R) August 01, 2022 1:14 PM documented in this encounter [facility] History of Present illness Narrative 04-24-2022 Dia Parsons OD - 04/24/2022 1:13 PM EDT Note Date & Type Note Facility 04-24-2022 History of Presen t illness Narrative ASSESSMENT/PLAN: 1. Pseudophakia of both eyes - ICD9: V43.1, ICD10: Z96.1 (primary diagnosis) Doing well, clear capsule OU. Sc vision since sx. Discussed OTC recommendations. Monitor yearly. 2. 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 3. 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 Presbyopia - ICD9: 367.4, ICD10: H52.4 Demo'd +2.00 OCT readers Dia Prasons, OD I have confirmed and edited as necessary the relevant ophthalmic history, ROS, and the exam findings as obtained by others. I have seen and examined this patient. I have discussed the case and the management of this patient's care with the resident or fellow as appropriate. I also have reviewed and agree with the assessment and plan as stated above and agree with all of its relevant components. Dia Parsons OD April 24, 2022 1:13 PM documented in this encounter [facility] Instructions 04-24-2022 Patient Instructions Note Date & Type Note Facility 04-24-2022 Instructions Dia Parsons OD - 04/24/2022 1:07 PM EDT +2.00 [id number] reading glasses for small print. 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, [address] [place] [address], [address] [place] [address] - [facility], [place], [address], Director Summer Sessions: Surjit Zarate MD [facility] Collection Date/Time: [id number] [facility] Results Received Date/Time: [id number] [facility] Reported Date/Time: [id number] Performed By: #### [id number] #### [facility] Default [address] [place] [address] History of Present illness Narrative 02-22-2021 Meredith Deluca ()Mimi - 02/22/2021 1:10 PM EDT Note Date & Type Note Facility 02-22-2021 History of Presen t illness Narrative Radiology Service Progress Note PATIENT NAME: Charley Link DATE OF SERVICE: February 22, 2021 TIME: 1:11 PM PATIENT IDENTITY VERIFICATION COMPLETED USING TWO (2) IDENTIFIERS: Name and Date of confirmed by patient verbally. FALL SCREENING: Has the patient had 2 falls in the last year or 1 fall with injury or currently using an Ambulatory Assistive Device (Walker, Cane, Wheelchair, Crutches, etc.)? No PATIENT GENDER DATA: Female. status: : No status: NO. 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, unspecified Presbyopia documented in this encounter [facility] Evaluation note Note Date & Type Note Facility Evaluation note Diagnosis 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 documented in this encounter [facility] Summary Purpose Family History No Family History Records FoundNo Family History Records FoundNo Family History Records Found Advance Directives Documents on File Type 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 Advance Directive(s) 03/02/2021 9:34 AM Advance Directive(s) 02/16/2021 12:17 PM Advance Directive(s) 07/14/2016 2:08 PM Advance Directive(s) 04/27/2016 3:12 PM Additional Source Comments INFORMATION SOURCE (unrecogn ized section and content) DATE CREATED AUTHOR 11/22/2021 [facility] DATE CREATED AUTHOR AUTHOR'S ORGANIZ ATION 03/24/2022 [facility] dical Specialist DATE CREATED AUTHOR AUTHOR'S ORGANIZ ATION 11/13/2023 [facility] Source Comments (unrecognize d section and content) In the event this informatio n is protected by the Federal Confidentiality of Alcohol and Drug Abuse Patient Records regulations: The Federal rules restrict any use of the information to criminally investigate or prosecute any alcohol or drug abuse patient.[facility] the event this information is protected by the Federal Confidentiality of Alcohol and Drug Abuse Patient Records regulations: The Federal rules restrict any use of the information to criminally investigate or prosecute any alcohol or drug abuse patient.[facility] the event this information is protected by the Federal Confidentiality of Alcohol and Drug Abuse Patient Records regulations: The Federal rules restrict any use of the information to criminally investigate or prosecute any alcohol or drug abuse patient.[facility] the event this information is protected by the Federal Confidentiality of Alcohol and Drug Abuse Patient Records regulations: The Federal rules restrict any use of the information to criminally investigate or prosecute any alcohol or drug abuse patient.[facility] the event this information is protected by the Federal Confidentiality of Alcohol and Drug Abuse Patient Records regulations: The Federal rules restrict any use of the information to criminally investigate or prosecute any alcohol or drug abuse patient.[facility] the event this information is protected by the Federal Confidentiality of Alcohol and Drug Abuse Patient Records regulations: The Federal rules restrict any use of the information to criminally investigate or prosecute any alcohol or drug abuse patient.[facility] Reason for Visit (unrecogniz ed section and content) Reason Comments Pseudophakia OU Reason Comments Radiology Mammogram Reason Comments Foreign Body Sensation Care Teams (unrecognized sec tion and content) Remote Sensing Technologist Relationship Specialty Start Date End Date Earnest Chicas MD [address] [place] [phone] PCP - General Family Practice 02/16/21 Remote Sensing Technologist Relationship Specialty Start Date End Date Earnest Chicas MD [address] [place] [phone] PCP - General Family Medicine 02/16/21 Remote Sensing Technologist Relationship Specialty Start Date End Date Earnest Chicas MD [address] [place] [address] PCP - [facility] 02/16/21 Remote Sensing Technologist Relationship Specialty Start Date End Date Earnest Chicas MD [address] [place] [address] PCP - [facility] 02/16/21 Remote Sensing Technologist Relationship Specialty Start Date End Date Earnest Chicas MD [address] [place] [address] PCP - [facility] 02/16/21 FOR RECORDS PERTAINING TO PATIENTS WHO ARE OR HAVE BEEN ENROLLED IN A CHEMICAL DEPENDENCY/SUBSTANCEABUSE PROGRAM, SOME INFORMATION MAY BE OMITTED. This clinical summary was aggregated from multiple sources. Caution should be exercised in using it in the provision of clinical care. This summary normalizes information from multiple sources, and as a consequence, information in this document may materially change the coding, format and clinical context of patient data. In addition, data may be omitted in some cases. CLINICAL DECISIONS SHOULD BE BASED ON THE PRIMARY CLINICAL RECORDS. [facility] Food Reporter [facility]. provides no warranty or guarantee of the accuracy or completeness of information in this document.
--- NOTE | 2024-09-24 09:29 | P.DS_ITS ---
Discharge Plan Discharge Disposition: Home, Self-Care Outpatient Diagnostics: VC INJ Foam Sclerosant WUS CUSTOMER AGENT (Routine) Timeframe: 1 Month Facility: [facility] - Location: [facility] Center Ordered By: Horacio Handley Follow Up Appointments: 09/30/24 Plan of Treatment: Varithena/microfoam of left leg Print Language: Romansh Discharge Date/Time: 09/24/24 09:30
== END 2024-09-24 09:30 | disposition home or self-care (01) ==
PROVIDERS: PCP Radiology Diagnostic Radiology; Visit Provider Radiology Diagnostic Radiology
DX: I80.02 Phlebitis and thrombophlebitis of superficial vessels of left lower extremity (principal)
CPT/HCPCS: 93971; G0463

== ENCOUNTER 2024-09-30 09:36 | Outpatient (OUT) | payer MEDICARE, BC, SELFPAY ==
--- NOTE | 2024-09-29 14:47 | VEINCLINIC_ITS ---
Vital Signs 09/30/24 09:50 BP 120/56 BP Location Left Brachial BP Position Sitting BP Cuff Size Adult BP Source Manual Cuff Respiration 18 Pulse 76 Pulse Source Monitor Pulse Oximetry (%) 98 Oxygen Delivery Method Room Air Comment The patient's blood pressure is elevated. Varicose Veins Patient in today for microfoam chemical ablation Murphy Packer MD personally performed the services described in this documentation, as scribed by Louie Us RN in my presence and it is both accurate and complete. ILouie RN, am scribing for, and in the presence of, Dr. Murphy Padilla and in the presence of the patient. thigh: left aching and dull 3 1 month Worsened in recent months: Yes standing analgesics Reports muscle spasms of leg and limb pain History of lower extremity trauma: No Superficial thrombophlebitis: No Family history of varicose veins: yes Has patient had previous lower extremity venous surgery: No Patient has previously received the following treatment(s) for lower extremity varicose veins: Reports none Does patient have a history of : yes Does patient intend to have future pregnancies: no Has patient had lower extremity venous scan with relux testing: No Support hose used: Yes Problems walking or doing physical activity: Yes How does it affect you: often has to set and elevate legs/feet due to pain Do you walk much: Yes Do you stand much: Yes Review of Systems ROS Narrative Murphy Packer MD personally performed the services described in this documentation, as scribed by Louie Us RN in my presence and it is both accurate and complete. Louie Packer RN, am scribing for, and in the presence of, Dr. Murphy Padilla and in the presence of the patient. Status of ROS 10 or more systems reviewed and unremark able except as noted in history and below [facility] Medical History (Updated 09/24/24 @ 08:23 by Anabel Lu) Phlebitis and thrombophlebitis of superficial vessels of left lower extremity ?I80.02 - Phlebitis and thrombophlebitis of superficial vessels of left lower extremity (ICD-10) Cataract ?H26.9 - Unspecified cataract (ICD-10) Pain due to varicose veins of both lower extremities ?I83.813 - Varicose veins of bilateral lower extremities with pain (ICD-10) Surgical History (Updated 09/30/24 @ 13:23 by Louie Us) S/P sclerotherapy of varicose veins ?Z98.890 - Other specified postprocedural states (ICD-10) ?Z86.79 - Personal history of other diseases of the circulatory system (ICD- 10) Status post laser ablation of incompetent vein ?Z98.890 - Other specified postprocedural states (ICD-10) H/O mastectomy ?Z90.10 - Acquired absence of unspecified breast and nipple (ICD-10) Family History (Updated 09/04/24 @ 13:48 by Louie Us) Other Pain due to varicose veins of both lower extremities Rheumatic aortic disease Social History (Updated 09/04/24 @ 13:49 by Louie Us) Within the past year, how often did you have a drink containing alcohol: monthly or less Smoking status: Never smoker Non-prescribed substance use: denies use Meds Home Medications and Allergies Home Medications ?Medication ?Instructions ?Recorded ?Confirmed ?Type multivitamin (Daily Multi-Vitamin 1 tab PO DAILY 09/04/24 09/04/24 History tablet) Allergies Allergy/AdvReac Type Severity Reaction Status Date / Time No Known Drug Allergies Allergy Verified 09/04/24 13:47 Exam Narrative Exam Narrative: Murphy Packer MD personally performed the services described in this documentation, as scribed by Louie Us RN in my presence and it is both accurate and complete. Louie Packer RN, am scribing for, and in the presence of, Dr. Murphy Padilla and in the presence of the patient. Assessment and Plan Assessment and Plan (1) Pain due to varicose veins of both lower extremities: Plan f/u evaluation with physician along with left limited u/s Murphy Packer MD personally performed the services described in this documentation, as scribed by Louie Us RN in my presence and it is both accurate and complete. Louie Packer RN, am scribing for, and in the presence of, Dr. Murphy Padilla and in the presence of the patient. Procedures Procedure Instructions Procedures leg microfoam chemical ablation/Varithena: Risks and benefits of the procedure were discussed at length and informed written consent was obtained.? Time-out procedure was performed and the correct patient and procedure were confirmed.? Staff present during time-out: Louie Us RN and Murphy Padilla MD.? Patient prepped and procedure performed in usual sterile fashion.? Patient was placed in Trendelenburg prior to Polidocanol/Varithena injections. Sclerosing Agent:??5 cc 1% Polidocanol/Varithena Site Injected: left lecc varithena administered in to a 3mm varicose vein lateral knee 2cc varithena administered in to a 3mm vein distal anterior thigh Number of Injections:? 2 The patient tolerated the procedure well without complication.? Hemostasis was obtained and thigh-high compression stocking was applied with foam pads.? Instructed patient to wear stocking for at least 96 hours and sleep with it and only remove for showering.? The patient was instructed to? wear stocking for 2 weeks.? Patient verbalizes understanding and states they will comply.? Patient was given post-procedure instructions. Patient was discharged in good condition.? Scheduled to undergo limited venous ultrasound and? exam on 10/06/2024 IMurphy MD personally performed the services described in this documentation, as scribed by Louie Us RN in my presence and it is both accurate and complete. ILouie RN, am scribing for, and in the presence of, Dr. Murphy Padilla and in the presence of the patient.
--- NOTE | 2024-09-29 14:50 | P.DS_ITS ---
Discharge Plan Discharge Disposition: Home, Self-Care Outpatient Diagnostics: VC Facility EST LMTD (Routine) Timeframe: 2 Weeks Facility: [facility] - Location: Vein Center Ordered By: Murphy Padilla VC EXT Venous LT Limited (Routine) Timeframe: 2 Weeks Facility: [facility] - Location: Vein Center Ordered By: Murphy Padilla Follow Up Appointments: 11/05/2024 Plan of Treatment: f/u evaluation along with left limited u/s Patient Instructions: Endovenous Ablation (DC) Print Language: Slovak Discharge Date/Time: 09/30/24 13:21
--- NOTE | 2024-09-30 09:38 | VEIN_ITS ---
[address] [address] Patient Name: LUDMILA LAMBERT MRN: [id number] date: 1940 Sex: F Assigned Patient Location: Current Patient Location: Accession/Order Number: [id number] Exam Date: 09/30/2024 09:39 Report Date: 09/30/2024 14:00 At the request of: CLAUDIA WOOD Procedure: VC INJ Foam Sclerosant [employer] PROCEDURE: VC INJ Foam Sclerosant [employer] HISTORY: I83.813 - Varicose veins of bilateral lower extremities w... 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 Ultrasound-guided microfoam chemical ablation with Varithenaregistered 2. Intraoperative ultrasound guidance Physician: Murphy Padilla M.D. Anesthesia: None Indications for Procedure: 83 year old female. Symptoms including lower extremity pain, swelling, dilated bulging veins for many years despite conservative medical therapy including medical compression stockings, exercise and analgesics. Prior procedures include endovenous laser ablation. Multiple incompetent varicosities of the right leg. Duplex scan showed reflux and enlarged diameters up to 4 mm. The patient underwent informed consent including management options where the complications of infection, bleeding, pain, and skin injury were discussed. Particular attention was spent discussing thrombus extension and deep vein thrombosis as well as the possibility of pulmonary embolus and treatment with oral or injectable blood thinners. Procedure: The patient walked to the procedure room. All applicable staff donned appropriate apparel. A procedure timeout was performed to confirm correct patient, correct extremity, correct procedure, and correct room set-up including presence of all applicable supplies, devices, and drugs. A duplex ultrasound, performed by myself confirmed the location and incompetence of branch saphenous varicosities and their course was marked on the skin together with the dilated tributaries. The extent of treatment of the vein and the associated varicosities was determined through ultrasound mapping. The skin was prepped and then punctured with a butterfly needle and advanced under ultrasound guidance. The Varithenaregistered canister was activated and the canister was primed and purged as required in the instructions for use. Varithenaregistered was drawn into a sterile syringe. Varithenaregistered was slowly administered at 0.5-1.0 cc/second with close observation by ultrasound of its course in the vessels. Total volume utilized was: 12 mL (6 mL intravenous 3 mm varicosity mid medial lower leg; 6 mL into a 4 mm varicosity medial to the knee). Following administration of Varithenaregistered the leg was elevated and the patient was asked to repeatedly dorsiflex the ankle to limit flow of Varithenaregistered into perforating veins. Once appropriate spasm had been confirmed in the treated veins, the vascular catheter was removed from the leg and light pressure was applied over the puncture site for hemostasis. The common femoral and deep superficial veins were then evaluated for flow and compressibility prior to dressing placement. The lower extremity was kept elevated at 45 degrees above the horizontal and cording material was applied over the saphenous segments and tributaries to allow for eccentric compression over the target vessels including the targeted saphenous vein(s). A multilayer dressing was applied consisting of foam pads, coban and thigh-high 20-30 mm Hg compression elastic support hose were placed on the patient. The leg was lowered only after compression had been applied and the patient was immediately ambulatory. The patient ambulated 10 minutes under supervision and was without apparent concerns at time of release. Post-care instructions include advising patient to keep post-treatment bandages in place and dry for 48 hours, avoid extended periods of inactivity, avoid heavy exercise for one week, wear compression stockings on the treated leg continuously for two weeks, to walk daily for 10 minutes over the next month. The patient was instructed to take an anti-inflammatory medicine as needed and to follow up for color duplex scan of the Saphenous veins, the treated branch saphenous varicosities, the adjacent deep veins, and additional treatment within 7 days. PERSONNEL: Louie Us RN Electronically authenticated by: MURPHY PADILLA Date: 09/30/2024 14:00
[2024-09-30 09:50] VITALS: BP 120/56; PULSE 76; O2SAT 98
--- OUTSIDE RECORDS SUMMARY | 2024-09-30 09:54 | XMS_ITS | CCD ---
Author Organization [facility] Care Team Providers Care Sound Cutter Name Role Phone Earnest Chicas MD Primary Care Provider SHARAN MARTINEZ Attending Unavailable EARNEST CHICAS Primary Care Unavailable VERENA MARIA Referring Unavailable EARNEST CHICAS Primary Care Unavailable Medications Current Medications Medication Drug Class(es) Dates [...] 0.5 % 1 Drop (ALCAINE) sodium chloride 0.170700 meq/mg ophthalmic ointment (1 source) Start: 09-23-2024 [...] Value Interpretation Reference Range Albert Pelayo 11-08-2023 [facility] HNO ID: [id number] Author: Coordinator, Mammography Service: ? Author Type: Physician Type: Letter Filed: 11/12/2023 11:34 PM Note Text: November 09, 2023 PID: [id number] Charley Link [address] [place] [address] Dear Ms. Link, We are pleased to [...] report will be kept on file at [facility] as part of your permanent medical record and are available for your continuing care. Thank you for allowing us to help in meeting your health care needs. Sincerely, Dr. Reyes Interpreting Radiologist [facility] (Normal over 40) Normal [facility] SCREENINGon 11-02-2023 [facility] SCREENING * * *Final Report* * * DATE OF EXAM: Nov 02 2023 2:59PM [id number] - [facility] SCREENING / PROCEDURE REASON: SCREENING * * * * Physician Interpretation * * * * RESULT: #[id number] - [facility] SCREENING UNILATERAL LEFT DIGITAL SCREENING MAMMOGRAM WITH CAD: 11/02/2023 HISTORY: Screening / Screening Mammogram-Patient reports NO symptoms. RESULT: TECHNIQUE: The study was acquired using full field digital technology and interpreted from soft copy. Current study was also evaluated with a Computer Aided Detection (CAD). Comparison is made to exams dated: 08/01/2022 mammogram, 02/22/2021 mammogram, 12/29/2019 mammogram, and 11/18/2018 mammogram - [facility]. The left breast is heterogeneously dense, which may obscure small masses. No significant masses, calcifications, or other findings are seen in the breast. There has been no significant interval change. IMPRESSION: NEGATIVE There is no mammographic evidence of malignancy. A 1 year screening mammogram is recommended. Rosi Reyes M.D., ch/soila:11/08/2023 16:10:08 Assembling Motor Builder(s): RT Tom(Ace)(M), [facility] letter sent: Normal over 40 Mammogram BI-RADS: [...] Health, Family Medicine, and Medical/Surgical Oncology, the [facility] has carefully reviewed the data and reached [...] their providers when to stop screening mammograms. Specification Manager: Soila Transcribe Date/Time: Nov 02 2023 2:29P Dictated by: ROSI REYES MD This examination was interpreted and the report reviewed and electronically signed by: ROSI REYES MD on Nov 08 2023 4:10PM EST [id number] Normal [facility] SCREENINGon 08-01-2022 [facility] Q - THINPREP(R) TISon 2021 CLINICAL INFORMATION: None given Normal [facility] Rodding Machine Tender Comment on above: Order Comment: [facility] at[facility], [address] [place] [address], [address] [place] [address], [phone], Gaming Cage Worker: Surjit Zarate MD [facility] Collection Date/Time: [facility] Results Received Date/Time: [facility] Reported Date/Time: Performed By: #### [id number] #### [facility] Default [address] [place] [address] COMMENT SEE NOTE Normal [facility] Rodding Machine Tender Comment on above: Order Comment: [facility] performed at: [facility], [address] [place] [address], [address] [place] [address], [phone], Gaming Cage Worker: Surjit Zarate MD [facility] Date/Time: [facility] [...] 5 [id number] #### [facility] Default [address] [place] [address] COMMENT: SEE NOTE Normal [facility] Comment on above: Order Comment: [facility] performed at: [place], [facility], [address] [place] [address], [address] [place] [address], [address] [place] [address], Gaming Cage Worker: Surjit Zarate MD [facility] Date/Time: [facility] [...] [id number] #### [facility] Default [address] [place] [address] SENIOR VALIDATION ENGINEER: SEE NOTE Normal [facility] Comment on above: Order Comment: [facility] performed at: [facility], [address] [place] [address], [address] [place] [address], [address] [place] [address], Gaming Cage Worker: Surjit Zarate MD [facility] Date/Time: [facility] Results Received Date/Time: [facility] Reported Date/Time: Result Comment: LXT, CT(ASCP) CT screening location: [place] [address]. Performed By: #### [id number] #### [facility] Default [address] [place] [address] INTERPRETATION/RES ULT: SEE NOTE Normal [facility] Comment on above: Order Comment: [facility] performed at: [facility], [facility], [address] [place] [address], [address] [place] [address], [address] [place] [address], Gaming Cage Worker: Surjit Zarate MD [facility] Date/Time: [facility] Results Received Date/Time: [facility] Reported Date/Time: Result Comment: Nega tive for intraepithelial lesion or malignancy. Atrophic pattern; predominantly parabasal cells Performed By: #### [id number] #### [facility] Default [address] [place] [address] LMP: None given Normal [facility] Specialist Comment on above: Order Comment: [facility] performed at: [facility], [facility], [address] [place] [address], [address] [place] [address], [address] [place] [address], Gaming Cage Worker: Surjit Zarate MD [facility] Date/Time: [facility] Results Received Date/Time: [facility] Reported Date/Time: Performed By: #### [id number] #### [facility] Default [address] [place] [address] PREV. BX: None given Normal [facility] Specialist Comment on above: Order Comment: [facility] performed at: [facility], [address] [place] [address], [address] [place] [address], [address] [place] [address], Gaming Cage Worker: Surjit Zarate MD [facility] Date/Time: [facility] Results Received Date/Time: [facility] Reported Date/Time: Performed By: #### 5 [id number] #### [facility] Default [address] [place] [address] PREV. PAP: None given Normal [facility] Specialist Comment on above: Order Comment: [facility] at: [facility], [address] [place] [address], [address] [place] [address], [address] [place] [address], Gaming Cage Worker: Surjit Zarate MD [facility] Date/Time: [facility] Results Received Date/Time: [facility] Reported Date/Time: Performed By: #### [id number] #### [facility] Default [address] [place] [address] SOURCE: None given Normal [facility] Specialist Comment on above: Order Comment: [facility] performed at: [facility], [facility], [address], [address] [facility] - [address] , [place], [address], Gaming Cage Worker: Surjit Zarate MD [facility] Date/Time: [id number] [facility] Results Received Date/Time: [id number] [facility] Reported Date/Time: [id number] Performed By: #### 5 [id number] #### [facility] Default [address] [place] [address] COVID-19 Lab [facility] 02-29-20 21 SARS-CoV-2 (COVID-19) RNA LILIA+probe Ql (Unsp spec) Not detected Normal Not Detected [facility] Comment on above: Order Comment: Healt hcare Worker?: N Result Comment: This nucleic acid amplification test was developed and its performance characteristics determined by [employer]. Nucleic acid amplification tests include RT- PCR [...] detected) result in this assay. PERFORMED BY: [facility] [address] [place] [address] PATHOLOGIST ACID DIPPER ORAL XIONG M.D. Performed By: #### C ORONAVIRUS #### [facility] , [facility] SCREENINGon 02-22-2021 [facility] COVID-19 [facility] 02-15-20 21 SARS-CoV-2 (COVID-19) RNA LILIA+probe Ql (Unsp spec) Not detected Normal Not Detected [facility] Comment on above: Order Comment: Healt hcare Worker?: N Result Comment: This nucleic acid amplification test was developed and its performance characteristics determined by [employer]. Nucleic acid amplification tests include RT- PCR [...] detected) result in this assay. PERFORMED BY: [address] [place] [address] PATHOLOGIST ACID DIPPER ORAL XIONG M.D. 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) Start: 11-02-2023 End: 11-02-2023 ambulatory VERENA MARIA Facility:[facility] Start: 08-01-2022 Documentation procedure Mammog riri Coordinator [facility] Start: 08-01-2022 Letter encounter Mammography Coordinator [facility] Department Start: 08-01-2022 End: 08-01-2022 Subsequent hospital visit by physician Screen Mammo [facility] Start: 04-24-2022 End: 04-24-2022 [...] Subsequent hospital visit by physician Screen Mammo [facility] Procedures Date Procedure Procedure Detail Performing Clinician Start: 08-01-2022 Screening mammograph y bi 2-view breast inc cad [facility] Provider Start: 02-22-2021 Screening mammograph y bi 2-view breast inc cad Fela Trevino MD Work Phone: Plan of Treatment Date Care Activity Detail Author Start: 07-13-2024 Covid-19 Vaccine ( season) Covid-19 Vaccine ( season) [facility] Start: 07-13-2024 Influenza vaccination Influenza Vacc ine (#1) [facility] Start: 11-12-2023 Advance Directive Discussion Advance Directive Discussion [facility] Start: 07-13-2023 Influenza vaccination INFLUENZA (#1) [facility] Start: 11-12-2022 ADVANCE DIRECTIVE DISCUSSION ADVANCE DIRECTIVE DISCUSSION [facility] Start: 11-12-2022 DEPRESSION ASSESSMENT DEPRESSION ASS ESSMENT [facility] Start: 07-13-2022 Influenza vaccination C [facility] Start: 11-12-2021 ADVANCE DIRECTIVE DISCUSSION ADVANCE DIRECTIVE DISCUSSION [facility] Start: 07-14-2019 DIABETES SCREEN DIABETES SCREEN [facility] Start: 07-14-2019 Diabetes Screening Diabetes Screenin g [facility] Start: 2017 RSV Vaccine (1 - 1-d ose 75+ series) RSV Vaccine (1 - 1-dose 75+ series) [facility] Start: 2007 BONE DENSITY BONE DENSITY [facility] Start: 2007 Pneumococcal Vaccine : 65+ (1 of 1 - PCV) Pneumococcal Vaccine: 65+ (1 of 1 - PCV) [facility] Start: 2007 PNEUMOCOCCAL: 65+ (1 - PCV) PNEUMOCOCCAL: 65+ (1 - PCV) [facility] Start: 2007 Screening for osteoporosis Bone Density Screening [facility] Start: 09-05-1999 Urine microalbumin profile DTaP,Tdap,Td Vaccine (1 - Tdap) [facility] Start: 1992 SHINGRIX VACCINE (1 of 2) SHINGRIX V ACCINE (1 of 2) [facility] Start: 1961 Urine microalbumin profile [facility] Start: 1960 Anxiety Screening Anxiety Screening [facility] Start: 1960 Depression Screening Depression Scre ening [facility] Start: 1954 Adult depression screening assessment DEPRESSION SCREENING [facility] Start: 1947 COVID-19 VACCINE (#1) COVID-19 VACCI NE (#1) [facility] Start: 06-22-1943 COVID-19 VACCINE (#1) COVID-19 VACCI NE (#1) [facility] Payers Date Payer Category Payer Unknown [employer] C[employer] PPO OOS [id number] 2016-Present [phone] [address] [place] [address] PPO [id number] 2016 Unknown [employer] BL[employer] CARD PPO OOS [id number] 2016-Present [phone] [address] [place] [address] PPO [id number] 2016 Unknown [id number] 2013 Medicare MEDICARE MEDICAR E A AND B [id number] 2013-Present [phone] [address] [address] [place] [address] Medicare [id number] 2013 Medicare MEDICARE MEDICAR E A AND B [id number] 2013-Present [phone] [place] [address] Medicare [id number] 2013 Medicare [id number] Social History Date Type Detail Facility Start: 04-03-2016 End: 01-06-2021 Tobacco smoking status NHIS Never smoked tobacco [facility] Start: 04-03-2016 End: 01-06-2021 Tobacco use and exposure Smokeless tobacco non-user [facility] Start: 04-24-2022 End: 09-23-2024 Alcohol intake Current drinker of alcohol (finding) [facility] Start: 04-24-2022 End: 09-23-2024 Alcohol intake [facility] Start: 1940 Sex Assigned At Not on file [facility] Start: 01-17-2021 End: 03-28-2022 Exposure to SARS-CoV-2 (event) Not sure [facility] Start: 04-24-2022 End: 09-23-2024 Tobacco use panel [facility] National Score (1-10 0), lower number is lower risk Not on file [facility] Medical Equipment Procedure Code Equipment Code Equipment Origin al Text Equipment Identifier Dates Matrix Alloderm Thick Acellular Dermis 16x8cm Tissue Allograft Regenerative - [id number] Start: 05-05-2016 Lens Iol 0d +21 Meng Uv Abs - [id number] Start: 02-16-2021 Comment on above: Description: -0.39 Lens Iol Acrysof Trc3 20.5 - [id number] Start: 03-02-2021 Comment on above: Description: -0.27 Tank Farm Operator Cpx4 P6 .2cm Contour Profile Medium Height Siltex 10.7x9.3cm Tissue - [id number] Start: 05-05-2016 Implant 11.7cm P3.5cm Moderate Plus Profile Round Silicone Breast Gel - [id number] Start: 07-18-2016 Comment on above: Description: smooth round moderate plus silicone Clinical Notes 02-22-2021 to 09-23-2024 Patient InstructionsHershner, Sharan A, OD - 09/23/2024 1:37 PM ESTLetter - Mammography Coordinator - 08/01/2022 1:42 PM EDTTMeredith hendrickson RT(R) - 08/01/2022 1:10 PM EDTPatient Instructions Note Date & Type Note Facility 09-23-2024 Instructions Sharan Martinez, OD - 09/23/2024 1:49 PM EST Dash 128 ointment - Use 1/2 inch to the left eye hs for one week then stop Refresh STORAGE BRINE WORKER tears every 2 hours for 1 week then four times a day ongoing documented in this encounter [facility] 09-23-2024 Note HNO ID: [id number] Author: SHARAN MARTINEZ OD Service: ? Author Type: HOT PATCHER Type: Progress Notes Filed: 09/23/2024 13:47 Note Text: (H18.522) Corneal epithelial basement membrane dystrophy of [...] discussed them in detail with the patient. Sharan Martinez, OD September 23, 2024 1:44 PM [facility] 09-23-2024 History of Presen t illness Narrative [...] discussed them in detail with the patient. Sharan Martinez, COSTA September 23, 2024 1:44 PM documented in this encounter [facility] 08-01-2022 Miscellaneous Notes August 01, 2022 PID: [id number] Charley Disla Nikolay [address] [place] [address] Dear Ms. Link, We are pleased to [...] report will be kept on file at [facility] as part of your permanent medical record and are available for your continuing care. Thank you for allowing us to help in meeting your health care needs. Sincerely, Dr. Wellington Interpreting Radiologist [facility] (Normal over 40) documented in this encounter [facility] 08-01-2022 History of Presen t illness Narrative [...] 2022 1:14 PM documented in this encounter [facility] 04-24-2022 History of Presen t illness Narrative [...] ICD10: H52.4 Demo'd +2.00 OCT readers Dia Parsons OD I have confirmed and edited as [...] 2022 1:13 PM documented in this encounter [facility] 04-24-2022 Instructions Dia Parsons, COSTA - 04/24/2022 1:07 PM EDT +2.00 [id number] reading glasses for small print. documented in this encounter [facility] 03-20-2022 Note SATISFACTORY FOR EVALUATION Sergey wiley [place] Rodding Machine Tender Comment on above: Order Comment: [facility] performed at: [facility], [facility], [address] [facility], [address] [place] [address] - [place], [address], Gaming Cage Worker: Surjit Zarate MD [facility] Collection Date/Time: [id number] [facility] Results Received Date/Time: [id number] [facility] Reported Date/Time: [id number] Performed By: #### 5 [id number] #### [facility] Default [address] [place] [address] 02-22-2021 History of Presen t illness Narrative [...] 2021 1:11 PM documented in this encounter [facility] Evaluation note Diagnosis Pseudophakia of both eyes- Primary Lens replaced by other means 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, unspecified Presbyopia documented in this encounter [facility] Diagnosis 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 documented in this encounter [facility] Summary Purpose Family History No Family History Records FoundNo Family History Records FoundNo Family History Records Found Advance Directives No Advanced Directives Records FoundDocuments on File Type Date Recorded Patient Studio Coordinator Expl anation Advance Directive(s) 03/02/2021 9:34 AM Advance Directive(s) 02/16/2021 12:17 PM Advance Directive(s) 07/14/2016 2:08 PM Advance Directive(s) 04/27/2016 3:12 PM Additional Source Comments INFORMATION SOURCE (unrecogn ized section and content) DATE CREATED AUTHOR 11/22/2021 [facility] DATE CREATED AUTHOR AUTHOR'S ORGANIZ ATION 03/24/2022 [facility] dical Specialist DATE CREATED AUTHOR AUTHOR'S ORGANIZ ATION 09/25/2024 [facility] Source Comments (unrecognize d section and content) In the event this informatio n is protected by the Federal Confidentiality of Alcohol and Drug Abuse Patient Records regulations: The Federal rules restrict any use of the information to criminally investigate or prosecute any alcohol or drug abuse patient.[facility] the event this information is protected by the Federal Confidentiality of Alcohol and Drug Abuse Patient Records regulations: The Federal rules restrict any use of the information to criminally investigate or prosecute any alcohol or drug abuse patient.[facility] the event this information is protected by the Federal Confidentiality of Alcohol and Drug Abuse Patient Records regulations: The Federal rules restrict any use of the information to criminally investigate or prosecute any alcohol or drug abuse patient.[facility] the event this information is protected by the Federal Confidentiality of Alcohol and Drug Abuse Patient Records regulations: The Federal rules restrict any use of the information to criminally investigate or prosecute any alcohol or drug abuse patient.[facility] the event this information is protected by the Federal Confidentiality of Alcohol and Drug Abuse Patient Records regulations: The Federal rules restrict any use of the information to criminally investigate or prosecute any alcohol or drug abuse patient.[facility] the event this information is protected by the Federal Confidentiality of Alcohol and Drug Abuse Patient Records regulations: The Federal rules restrict any use of the information to criminally investigate or prosecute any alcohol or drug abuse patient.[facility] Reason for Visit (unrecogniz ed section and content) Reason Comments Pseudophakia OU Reason Comments Radiology Mammogram Reason Comments Foreign Body Sensation Care Teams (unrecognized sec tion and content) Sound Cutter Relationship Specialty Start Date End Date Earnest Chicas MD [address] [place] [address] PCP - General Family Practice 02/16/21 Sound Cutter Relationship Specialty Start Date End Date Earnest Chicas MD [address] [place] [address] PCP - General Family Medicine 02/16/21 Sound Cutter Relationship Specialty Start Date End Date Earnest Chicas MD [address] [place] [address] PCP - General Family Medicine 02/16/21 Sound Cutter Relationship Specialty Start Date End Date Earnest Chicas MD [address] [place] [address] PCP - General Family Medicine 02/16/21 Sound Cutter Relationship Specialty Start Date End Date Earnest Chicas MD [address] [place] [address] PCP - General Family Medicine 02/16/21 FOR RECORDS PERTAINING TO PATIENTS WHO [...] BE BASED ON THE PRIMARY CLINICAL RECORDS. [employer] [facility]. provides no warranty or guarantee of the accuracy or completeness of information in this document.
== END 2024-09-30 13:21 | disposition home or self-care (01) ==
LOC: VC 09:38
PROVIDERS: PCP Radiology Diagnostic Radiology; Visit Provider Radiology Diagnostic Radiology
DX: I83.813 Varicose veins of bilateral lower extremities with pain (principal)
CPT/HCPCS: 36466

== ENCOUNTER 2024-10-06 11:22 | Outpatient (OUT) | payer MEDICARE, BC, SELFPAY ==
--- NOTE | 2024-10-06 11:24 | VEIN_ITS ---
Patient Name: LUDMILA LAMBERT MR#: [id number] : 1940 Exam Date: 10/06/2024 Ordering Doctor: DR MARK ANTHONY PADILLA M.D. RADIOLOGY REPORT PROCEDURE: VC EXT VENOUS LT LIMITED COMPARISON: VC EXT VENOUS LT LIMITED, 09/24/2024. INDICATIONS: I80.02 - Phlebitis and thrombophlebitis of superficial veins left leg TECHNIQUE: Lower extremity romero scale and Duplex Doppler evaluation of the deep venous system from the inguinal ligament through the calf veins. FINDINGS: REGION: Left lower extremity. THROMBI: Negative for DVT. 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 COMPRESSIBILITY: Non-compressible segments corresponding to thrombus FLOW: Areas of no flow corresponding to thrombus OTHER: No significant varicose veins remain. CONCLUSION: 1. Successful post ablation occlusion of left leg treated branch saphenous varicosities. Dictated by: Mark Anthony Padilla M.D. on 10/06/2024 at 16:04 Approved by: Mark Anthony Padilla M.D. on 10/06/2024 at 16:05
--- NOTE | 2024-10-06 11:24 | VEIN_ITS ---
Patient Name: LUDMILA LAMBERT MR#: [id number] : 1940 Exam Date: 10/06/2024 Ordering Doctor: DR MARK ANTHONY VALLES M.D. RADIOLOGY REPORT PROCEDURE: [facility] EST [facility] - OFFICE VISIT FOLLOW UP COMPARISON: [facility], 09/24/2024. PROGRESS NOTES: The patient reports improvement in leg symptoms. There has been interval reduction in varicosities. The patient has followed our recommendations to walk 20-30 minutes once or twice per day since the procedure. Physical exam demonstrates decrease in varicosities of the leg. Persistent numerous spider veins and reticular veins are identified along the legs bilaterally. Review of the ultrasound performed the same day demonstrates occlusive thrombus extending throughout the treated vein(s), see separate report, consistent with a successful ablation. No thrombus extending into or beyond the saphenofemoral junction. The patient does not desire to proceed with any additional treatment at this time and is happy with results. VEIN/[facility] EST TD IMPRESSION: 1. Successful ablation of the left leg treated branch saphenous vein(s). 2. Persistent reticular and spider veins bilaterally. PLAN: Patient is happy with treatment and results, and does not wish to proceed any further regarding treatment of spider veins. Patient will follow-up in future as needed. Nurse notes, history and physical were reviewed and confirmed, see attached forms. The nurse was present throughout the physical exam and consultation Dictated by: Mark Anthony Valles M.D. on 10/06/2024 at 16:05 Approved by: Mark Anthony Valles M.D. on 10/06/2024 at 16:06
[2024-10-06 11:31] VITALS: BMI 23.8
--- NOTE | 2024-10-06 11:31 | VEINCLINIC_ITS ---
Vital Signs 10/06/24 11:31 Height 5 ft 7 in Weight 68.9 kg BMI 23.8 Varicose Veins Patient in today for follow up ultrasound of left lower extremity following treatment of Varithena/microfoam completed on 09/30/24. Murphy Packer MD personally performed the services described in this documentation, as scribed by Anabel Lu RDMS in my presence and it is both accurate and complete. Anabel Packer RDMS, am scribing for, and in the presence of, Dr. Makayla Padilla and in the presence of the patient. thigh: left aching and dull 3 1 month Worsened in recent months: Yes standing analgesics Reports muscle spasms of leg and limb pain History of lower extremity trauma: No Superficial thrombophlebitis: No Family history of varicose veins: yes Has patient had previous lower extremity venous surgery: No Patient has previously received the following treatment(s) for lower extremity varicose veins: Reports none Does patient have a history of : yes Does patient intend to have future pregnancies: no Has patient had lower extremity venous scan with relux testing: No Support hose used: Yes Problems walking or doing physical activity: Yes How does it affect you: often has to set and elevate legs/feet due to pain Do you walk much: Yes Do you stand much: Yes Review of Systems ROS Narrative Murphy Packer MD personally performed the services described in this documentation, as scribed by Anabel Lu RDMS in my presence and it is both accurate and complete. Anabel Packer RDMS, am scribing for, and in the presence of, Dr. Makayla Padilla and in the presence of the patient. Status of ROS 10 or more systems reviewed and unremark able except as noted in history and below [facility] Medical History (Updated 09/24/24 @ 08:23 by Anabel Lu) Phlebitis and thrombophlebitis of superficial vessels of left lower extremity ?I80.02 - Phlebitis and thrombophlebitis of superficial vessels of left lower extremity (ICD-10) Cataract ?H26.9 - Unspecified cataract (ICD-10) Pain due to varicose veins of both lower extremities ?I83.813 - Varicose veins of bilateral lower extremities with pain (ICD-10) Surgical History (Updated 09/30/24 @ 13:23 by Louie Us) S/P sclerotherapy of varicose veins ?Z98.890 - Other specified postprocedural states (ICD-10) ?Z86.79 - Personal history of other diseases of the circulatory system (ICD- 10) Status post laser ablation of incompetent vein ?Z98.890 - Other specified postprocedural states (ICD-10) H/O mastectomy ?Z90.10 - Acquired absence of unspecified breast and nipple (ICD-10) Family History (Updated 09/04/24 @ 13:48 by Louie Us) Other Pain due to varicose veins of both lower extremities Rheumatic aortic disease Social History (Updated 09/04/24 @ 13:49 by Louie Us) Within the past year, how often did you have a drink containing alcohol: monthly or less Smoking status: Never smoker Non-prescribed substance use: denies use Meds Home Medications and Allergies Home Medications ?Medication ?Instructions ?Recorded ?Confirmed ?Type multivitamin (Daily Multi-Vitamin 1 tab PO DAILY 09/04/24 09/04/24 History tablet) Allergies Allergy/AdvReac Type Severity Reaction Status Date / Time No Known Drug Allergies Allergy Verified 09/04/24 13:47 Exam Narrative Exam Narrative: Murphy Packer MD personally performed the services described in this documentation, as scribed by Anabel Lu RDMS in my presence and it is both accurate and complete. Anabel Packer RDMS, am scribing for, and in the presence of, Dr. Makayla Padilla and in the presence of the patient. 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 Murphy Packer MD personally performed the services described in this documentation, as scribed by Anabel Lu RDMS in my presence and it is both accurate and complete. Anabel Packer RDMS am scribing for, and in the presence of, Dr. Makayla Padilla and in the presence of the patient. Assessment and Plan Assessment and Plan (1) Phlebitis and thrombophlebitis of superficial vessels of left lower extremity: Plan Patient is finished with treatment at this time. Follow up as needed. I, Murphy Padilla MD personally performed the services described in this documentation, as scribed by Anabel Lu RDMS in my presence and it is both accurate and complete. I, Anabel Lu RDMS, am scribing for, and in the presence of, Dr. Makayla Padilla and in the presence of the patient.
--- OUTSIDE RECORDS SUMMARY | 2024-10-06 11:32 | XMS_ITS | CCD ---
Author Organization [facility] Care Team Providers Care Expediter Service Order Name Role Phone Earnest Chicas MD Primary Care Provider [phone] SHARAN MARTINEZ Attending Unavailable EARNEST CHICAS Primary [...] 0.5 % 1 Drop (ALCAINE) sodium chloride 0.850378 meq/mg ophthalmic ointment (1 source) Start: 09-23-2024 [...] Value Interpretation Reference Range Albert Pelayo 11-08-2023 [facility] HNO ID: [id number] Author: Coordinator, Mammography Service: ? Author Type: Physician Type: Letter Filed: 11/12/2023 11:34 PM Note Text: November 09, 2023 PID: [id number] Charley Link [address] [place] [address] Dear Ms. Link, We are pleased to [...] report will be kept on file at [facility] as part of your permanent medical record and are available for your continuing care. Thank you for allowing us to help in meeting your health care needs. Sincerely, Dr. Reyes Interpreting Radiologist [facility] (Normal over 40) Normal [facility] SCREENINGon 11-02-2023 [facility] SCREENING * * *Final Report* * * DATE OF EXAM: Nov 02 2023 2:59PM [id number] - [facility] SCREENING / PROCEDURE REASON: SCREENING * * * * Physician Interpretation * * * * RESULT: #[id number] - [facility] SCREENING UNILATERAL LEFT DIGITAL SCREENING MAMMOGRAM WITH CAD: 11/02/2023 HISTORY: Screening / Screening Mammogram-Patient reports NO symptoms. RESULT: TECHNIQUE: The study was acquired using full field digital technology and interpreted from soft copy. Current study was also evaluated with a Computer Aided Detection (CAD). Comparison is made to exams dated: 08/01/2022 mammogram, 02/22/2021 mammogram, 12/29/2019 mammogram, and 11/18/2018 mammogram - [facility]. The left breast is heterogeneously dense, which may obscure small masses. No significant masses, calcifications, or other findings are seen in the breast. There has been no significant interval change. IMPRESSION: NEGATIVE There is no mammographic evidence of malignancy. A 1 year screening mammogram is recommended. Rosi Reyes M.D., ch/soila:11/08/2023 16:10:08 Insurance Sales Professional(s): RT Tom(Ace)(M), [facility] letter sent: Normal over 40 Mammogram BI-RADS: [...] Health, Family Medicine, and Medical/Surgical Oncology, the [facility] has carefully reviewed the data and [...] their providers when to stop screening mammograms. Head Turning Machine Operator: Soila Transcribe Date/Time: Nov 02 2023 2:29P Dictated by: ROSI REYES MD This examination was interpreted and the report reviewed and electronically signed by: ROSI REYES MD on Nov 08 2023 4:10PM EST [id number] Normal [facility] SCREENINGon 08-01-2022 [facility] Q - THINPREP(R) TISon 2021 CLINICAL INFORMATION: None given Normal [facility] Associate Director Of Development Comment on above: Order Comment: [facility] performed at: [facility], [address] [place] [address], [address] [place] [address], [phone], Oral Surgery Assistant: Surjit Zarate MD [facility] Collection Date/Time: [facility] Results Received Date/Time: [facility] Reported Date/Time: Performed By: #### [id number] #### [facility] Default [address] [place] [address] COMMENT SEE NOTE Normal [facility] Associate Director Of Development Comment on above: Order Comment: [facility] performed at: [facility], [address] [place] [address], [address] [place] [address], [phone], Oral Surgery Assistant: Surjit Zarate MD [facility] Collection Date/Time: [facility] [...] 5 [id number] #### [facility] Default [address] [place] [address] COMMENT: SEE NOTE Normal [facility] Comment on above: Order Comment: [facility] Testing performed at: [place], [address] [place] [address], [address] [place] [address], [address] [place] [address], Oral Surgery Assistant: Surjit Zarate MD [facility] Date/Time: [facility] [...] 5 [id number] #### [facility] Default [address] [place] [address] BEER RUNNER: SEE NOTE Normal [facility] Comment on above: Order Comment: [facility] Testing performed at: [facility], [address] [place] [address], [address] [place] [address], [address] [place] [address], Oral Surgery Assistant: Surjit Zarate MD [facility] Collection Date/Time: [facility] Results Received Date/Time: [facility] Reported Date/Time: Result Comment: LXT, CT(ASCP) CT screening location: [place] [address]. Performed By: #### [id number] #### [facility] Default [address] [place] [address] INTERPRETATION/RES ULT: SEE NOTE Normal [facility] Comment on above: Order Comment: [facility] Testing performed at: [facility], [facility], [address] [place] [address], [address] [place] [address], [address] [place] [address], Oral Surgery Assistant: Surjit Zarate MD [facility] Date/Time: [facility] Results Received Date/Time: [facility] Reported Date/Time: Result Comment: Nega tive for intraepithelial lesion or malignancy. Atrophic pattern; predominantly parabasal cells Performed By: #### [id number] #### [facility] Default [address] [place] [address] LMP: None given Normal [facility] Specialist Comment on above: Order Comment: [facility] Testing performed at: [facility], [address] [place] [address], [address] [place] [address], [address] [place] [address], Oral Surgery Assistant: Surjit Zarate MD [facility] Date/Time: [facility] Results Received Date/Time: [facility] Reported Date/Time: Performed By: #### 5 [id number] #### [facility] Default [address] [place] [address] PREV. BX: None given Normal [facility] Specialist Comment on above: Order Comment: [facility] Testing performed at: [facility], [address] [place] [address], [address] [place] [address], [address] [place] [address], Oral Surgery Assistant: Surjit Zarate MD [facility] Date/Time: [facility] Results Received Date/Time: [facility] Reported Date/Time: Performed By: #### 5 [id number] #### [facility] Default [address] [place] [address] PREV. PAP: None given Normal [facility] Specialist Comment on above: Order Comment: [facility] Testing performed at: [facility], [address] [place] [address], [address] [place] [address], [address] [place] [address], Oral Surgery Assistant: Surjit Zarate MD [facility] Date/Time: [facility] Results Received Date/Time: [facility] Reported Date/Time: Performed By: #### 5 [id number] #### [facility] Default [address] [place] [address] SOURCE: None given Normal [facility] Specialist Comment on above: Order Comment: [facility] Testing performed at: [facility], [facility], [address], [address] [facility] - [address] , [place], [address], Oral Surgery Assistant: Surjit Zarate MD [facility] Date/Time: [id number] [facility] Results Received Date/Time: [id number] [facility] Reported Date/Time: [id number] Performed By: #### 5 [id number] #### [facility] Default [address] [place] [address] COVID-19 Lab [facility] 02-29-20 21 SARS-CoV-2 (COVID-19) RNA LILIA+probe Ql (Unsp spec) Not detected Normal Not Detected [facility] Comment on above: Order Comment: Healt hcare Worker?: N Result Comment: This nucleic acid amplification test was developed and its performance characteristics determined by [facility]. Nucleic acid amplification tests include RT- PCR [...] detected) result in this assay. PERFORMED BY: [facility] [address] [place] [address] PATHOLOGIST WATCH DIAL PRINTER ORAL XIONG M.D. Performed By: #### C ORONAVIRUS #### [facility] , [facility] SCREEN[facility]on 02-22-2021 [facility] COVID-19 [facility] 02-15-20 21 SARS-CoV-2 (COVID-19) RNA LILIA+probe Ql (Unsp spec) Not detected Normal Not Detected [facility] Comment on above: Order Comment: Healt hcare Worker?: N Result Comment: This nucleic acid amplification test was developed and its performance characteristics determined by [facility]. Nucleic acid amplification tests include RT- PCR [...] detected) result in this assay. PERFORMED BY: [address] [place] [address] PATHOLOGIST WATCH DIAL PRINTER ORAL XIONG M.D. 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) Start: 11-02-2023 End: 11-02-2023 ambulatory VERENA MARIA Facility:[facility] Start: 08-01-2022 Documentation procedure Mammog riri Coordinator [facility] Start: 08-01-2022 Letter encounter Mammography Coordinator [facility] Department Start: 08-01-2022 End: 08-01-2022 Subsequent hospital visit by physician Screen Mammo [facility] Start: 04-24-2022 End: 04-24-2022 Patient [...] Subsequent hospital visit by physician Screen Mammo [facility] Procedures Date Procedure Procedure Detail Performing Clinician Start: 08-01-2022 Screening mammograph y bi 2-view breast inc cad [facility] Provider Start: 02-22-2021 Screening mammograph y bi 2-view breast inc cad Fela Trevino MD Work Phone: Plan of Treatment Date Care Activity Detail Author Start: 07-13-2024 Covid-19 Vaccine ( season) Covid-19 Vaccine ( season) [facility] Start: 07-13-2024 Influenza vaccination Influenza Vacc ine (#1) [facility] Start: 11-12-2023 Advance Directive Discussion Advance Directive Discussion [facility] Start: 07-13-2023 Influenza vaccination INFLUENZA (#1) [facility] Start: 11-12-2022 ADVANCE DIRECTIVE DISCUSSION ADVANCE DIRECTIVE DISCUSSION [facility] Start: 11-12-2022 DEPRESSION ASSESSMENT DEPRESSION ASS ESSMENT [facility] Start: 07-13-2022 Influenza vaccination C [facility] Start: 11-12-2021 ADVANCE DIRECTIVE DISCUSSION ADVANCE DIRECTIVE DISCUSSION [facility] Start: 07-14-2019 DIABETES SCREEN DIABETES SCREEN [facility] Start: 07-14-2019 Diabetes Screening Diabetes Screenin g [facility] Start: 2017 RSV Vaccine (1 - 1-d ose 75+ series) RSV Vaccine (1 - 1-dose 75+ series) [facility] Start: 2007 BONE DENSITY BONE DENSITY [facility] Start: 2007 Pneumococcal Vaccine : 65+ (1 of 1 - PCV) Pneumococcal Vaccine: 65+ (1 of 1 - PCV) [facility] Start: 2007 PNEUMOCOCCAL: 65+ (1 - PCV) PNEUMOCOCCAL: 65+ (1 - PCV) [facility] Start: 2007 Screening for osteoporosis Bone Density Screening [facility] Start: 09-05-1999 Urine microalbumin profile DTaP,Tdap,Td Vaccine (1 - Tdap) [facility] Start: 1992 SHINGRIX VACCINE (1 of 2) SHINGRIX V ACCINE (1 of 2) [facility] Start: 1961 Urine microalbumin profile [facility] Start: 1960 Anxiety Screening Anxiety Screening [facility] Start: 1960 Depression Screening Depression Scre ening [facility] Start: 1954 Adult depression screening assessment DEPRESSION SCREENING [facility] Start: 1947 COVID-19 VACCINE (#1) COVID-19 VACCI NE (#1) [facility] Start: 06-22-1943 COVID-19 VACCINE (#1) COVID-19 VACCI NE (#1) [facility] Payers Date Payer Category Payer Unknown [employer] PPO OOS [id number] 2016-Present [phone] [address] [place] [address] PPO [id number] 2016 Unknown [employer] C[employer] PPO OOS [id number] 2016-Present [phone] [address] [place] [address] PPO [id number] 2016 Unknown [id number] 2013 Medicare MEDICARE MEDICAR E A AND B [id number] 2013-Present [phone] [address] [address] [place] [address] Medicare [id number] 2013 Medicare MEDICARE MEDICAR E A AND B [id number] 2013-Present [phone] [place] [address] Medicare [id number] 2013 Medicare [id number] Social History Date Type Detail Facility Start: 04-03-2016 End: 01-06-2021 Tobacco smoking status NHIS Never smoked tobacco [facility] Start: 04-03-2016 End: 01-06-2021 Tobacco use and exposure Smokeless tobacco non-user [facility] Start: 04-24-2022 End: 09-23-2024 Alcohol intake Current drinker of alcohol (finding) [facility] Start: 04-24-2022 End: 09-23-2024 Alcohol intake [facility] Start: 1940 Sex Assigned At Not on file [facility] Start: 01-17-2021 End: 03-28-2022 Exposure to SARS-CoV-2 (event) Not sure [facility] Start: 04-24-2022 End: 09-23-2024 Tobacco use panel [facility] National Score (1-10 0), lower number is lower risk Not on file [facility] Medical Equipment Procedure Code Equipment Code Equipment Origin al Text Equipment Identifier Dates Matrix Alloderm Thick Acellular Dermis 16x8cm Tissue Allograft Regenerative - [id number] Start: 05-05-2016 Lens Iol 0d +21 Meng Uv Abs - [id number] Start: 02-16-2021 Comment on above: Description: -0.39 Lens Iol Acrysof Trc3 20.5 - [id number] Start: 03-02-2021 Comment on above: Description: -0.27 Data Analyst Etl Developer Cpx4 P6 .2cm Contour Profile Medium Height Siltex 10.7x9.3cm Tissue - [id number] Start: 05-05-2016 Implant 11.7cm P3.5cm Moderate Plus Profile Round Silicone Breast Gel - [id number] Start: 07-18-2016 Comment on above: Description: [...] hs for one week then stop 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 Author Type: SURGICAL CODER Type: Progress Notes Filed: 09/23/2024 13:47 Note [...] Martinez, OD September 23, 2024 1:44 PM [facility] 09-23-2024 History of Presen t [...] 2024 1:44 PM documented in this encounter [facility] 08-01-2022 Miscellaneous Notes August 01, 2022 PID: [id number] Charley Disla Nikolay [address] [place] [address] Dear Ms. Link, We are pleased to [...] report will be kept on file at [facility] as part of your permanent medical record and are available for your continuing care. Thank you for allowing us to help in meeting your health care needs. Sincerely, Dr. Wellington Interpreting Radiologist [facility] (Normal over 40) documented in this encounter [facility] 08-01-2022 History of Presen t illness Narrative [...] 2022 1:14 PM documented in this encounter [facility] 04-24-2022 History of Presen t illness Narrative [...] 2022 1:13 PM documented in this encounter [facility] 04-24-2022 Instructions Dia Parsons, COSTA - 04/24/2022 1:07 PM EDT +2.00 [id number] reading glasses for small print. documented in this encounter [facility] 03-20-2022 Note SATISFACTORY FOR EVALUATION Sergey wiley [place] Associate Director Of Development Comment on above: Order Comment: [facility] Testing performed at: [facility], [address] [facility], [address] [place] [address] [place], [address], Oral Surgery Assistant: Surjit Zarate MD [facility] Collection Date/Time: [id number] [facility] Results Received Date/Time: [id number] [facility] Reported Date/Time: [id number] Performed By: #### 5 [id number] #### [facility] Default [address] [place] [address] 02-22-2021 History of Presen t illness Narrative [...] 2021 1:11 PM documented in this encounter [facility] Evaluation note Diagnosis Pseudophakia of both eyes- Primary Lens replaced by other means 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, unspecified Presbyopia documented in this encounter [facility]* Diagnosis 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 documented in this encounter [facility] Summary Purpose Family History No Family History Records FoundNo Family History Records FoundNo Family History Records Found Advance Directives No Advanced Directives Records FoundDocuments on File Type Date Recorded 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 Advance Directive(s) 03/02/2021 9:34 AM Advance Directive(s) 02/16/2021 12:17 PM Advance Directive(s) 07/14/2016 2:08 PM Advance Directive(s) 04/27/2016 3:12 PM Additional Source Comments INFORMATION SOURCE (unrecogn ized section and content) DATE CREATED AUTHOR 11/22/2021 [facility] DATE CREATED AUTHOR AUTHOR'S ORGANIZ ATION 03/24/2022 [facility] dical Specialist DATE CREATED AUTHOR AUTHOR'S ORGANIZ ATION 09/25/2024 [facility] Source Comments (unrecognize d section and content) In the event this informatio n is protected by the Federal Confidentiality of Alcohol and Drug Abuse Patient Records regulations: The Federal rules restrict any use of the information to criminally investigate or prosecute any alcohol or drug abuse patient.[facility] the event this information is protected by the Federal Confidentiality of Alcohol and Drug Abuse Patient Records regulations: The Federal rules restrict any use of the information to criminally investigate or prosecute any alcohol or drug abuse patient.[facility] the event this information is protected by the Federal Confidentiality of Alcohol and Drug Abuse Patient Records regulations: The Federal rules restrict any use of the information to criminally investigate or prosecute any alcohol or drug abuse patient.[facility] the event this information is protected by the Federal Confidentiality of Alcohol and Drug Abuse Patient Records regulations: The Federal rules restrict any use of the information to criminally investigate or prosecute any alcohol or drug abuse patient.[facility] the event this information is protected by the Federal Confidentiality of Alcohol and Drug Abuse Patient Records regulations: The Federal rules restrict any use of the information to criminally investigate or prosecute any alcohol or drug abuse patient.[facility] the event this information is protected by the Federal Confidentiality of Alcohol and Drug Abuse Patient Records regulations: The Federal rules restrict any use of the information to criminally investigate or prosecute any alcohol or drug abuse patient.[facility] Reason for Visit (unrecogniz ed section and content) Reason Comments Pseudophakia OU Reason Comments Radiology Mammogram Reason Comments Foreign Body Sensation Care Teams (unrecognized sec tion and content) Expediter Service Order Relationship Specialty Start Date End Date Earnest Chicas MD [address] [place] [address] PCP - General Family Practice 02/16/21 Expediter Service Order Relationship Specialty Start Date End Date Earnest Chicas MD [address] [place] [address] PCP - General Family Medicine 02/16/21 Expediter Service Order Relationship Specialty Start Date End Date Earnest Chicas MD [address] [place] [address] PCP - General Family Medicine 02/16/21 Expediter Service Order Relationship Specialty Start Date End Date Earnest Chicas MD [address] [place] [address] PCP - General Family Medicine 02/16/21 Expediter Service Order Relationship Specialty Start Date End Date Earnest Chicas MD [address] [place] [address] PCP - General Family Medicine 02/16/21 FOR [...] BE BASED ON THE PRIMARY CLINICAL RECORDS. [employer] [facility]. provides no warranty or guarantee of the accuracy or completeness of information in this document.
--- NOTE | 2024-10-06 13:59 | P.DS_ITS ---
Discharge Plan Discharge Disposition: Home, Self-Care Discharge Medications: No Action multivitamin [Daily Multi-Vitamin] Tablet 1 tab PO DAILY Plan of Treatment: Finished with treatment at this time. Print Language: Vietnamese Discharge Date/Time: 10/06/24 14:02
== END 2024-10-06 14:02 | disposition home or self-care (01) ==
PROVIDERS: PCP Radiology Diagnostic Radiology; Visit Provider Radiology Diagnostic Radiology
DX: I80.02 Phlebitis and thrombophlebitis of superficial vessels of left lower extremity (principal)
CPT/HCPCS: 93971; G0463